=== PATIENT | female | born 1975 | race Caucasian/White ===

== ENCOUNTER → 2017-06-29 17:02 | Outpatient (CLI) | payer OTHER, SELFPAY ==
[2017-06-29 17:47] LABS: Hematocrit 37.9 % (37-47); Hemoglobin 12.5 g/dl (12.0-15.0); Mean Corpuscular Hgb 30.5 pg (27.0-32.0); Mean Corpuscular Volume 92.4 fL (81-99); Mean Platelet Vol. 10.7 fl (6.2-12.0); Platelet Count 214 K/mm3 (150-450); RBC Distribution Width CV 12.5 % (11.6-14.6); RBC Distribution Width SD 41.8 fl (35.1-43.9); White Blood Count 6.7 K/mm3 (4.4-11.0)
[2017-06-29 17:50] LABS: Scan Indicated on CBC? Y/N NO
[2017-06-29 18:19] LABS: Hemoglobin A1c 4.9 % (4.2-6.3)
[2017-06-29 18:32] LABS: hCG Titer Quant., Serum < 1 mIU/mL (<9 non-preg)
[2017-06-29 18:37] LABS: Progesterone Level 12.17 ng/mL (See Comment)
[2017-06-29 18:58] LABS: Estradiol 176.1 pg/mL; T4 Free Direct 1.17 ng/dL (0.76-1.46); Thyroid Stim Hormone (TSH) 1.54 uIU/mL (0.358-3.74)
== END ==
PROVIDERS: Visit Provider Obstetrics & Gynecology
DX: N92.0 Excessive and frequent menstruation with regular cycle (principal)
CPT/HCPCS: 36415; 82670; 83036; 84144; 84403; 84439; 84443; 84481; 84702; 85027

== ENCOUNTER 2017-07-16 19:34 | Observation (INO) | payer OTHER, SELFPAY ==
[2017-07-16 19:35] VITALS: BP 128/80; PULSE 111; RESP 15; TEMP 37.1; O2SAT 100
--- NOTE | 2017-07-16 20:16 | ED.DCSUM_ITS ---
- ER Visit Summary Date of Service: 07/16/17 Chief Complaint: Vaginal bleeding History of Present Illness: The patient is a 42 F Ab0. The last 2 menstrual cycles had heavier bleeding than normal. She is on day 8 of her most recent menstrual cycle with heavier bleeding now with clots. No significant pain. Intermittent cramping. 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 Cass Couch within the last week who did a progesterone level and started her on Prometrium. She denies any bruising. She is on no blood thinners. Other than the Prometrium she is on no other medication. She denies any rectal bleeding or bloody noses. Physical Examination: Well-appearing middle-age female. Vital signs are stable afebrile. HEENT exam unremarkable. Neck nontender no lymphadenopathy. Lungs good auscultation bilaterally. Heart rate about 105 no murmur. Abdomen soft nontender nondistended no giving or masses. Normal bowel sounds no peritoneal signs. I do not feel an enlarged uterus on the abdominal exam. Extremities moves all 4. Neurovascular intact. No edema. Neurologically awake alert without focal deficits. Back exam nontender. Test Results: CBC normal white count. Showed an H&H of 10.1 and 30 previously the hemoglobin was 12.5. about 2 weeks ago. Serum test negative. Orthostatic vital signs were negative. Emergency Department Course and Treatment: Pelvic exam and screening labs. Exam showed moderate vaginal bleeding with bright red blood and clots. That was cleared out. No adnexal tenderness or masses. The uterus did not feel significantly enlarged nor did I palpate any large fibroids. Treatment Plan: Patient continued to bleed. A pelvic ultrasound has been performed but no official reading as of yet. I spoke with Dr. Ren she is coming in to evaluate the patient and will make a determination if the patient needs to go to the OR. We will obtain a second H&H. Patient will be typed and screened. She had a transient episode of bradycardia and hypotension but that is since resolved. We are hanging a liter of normal saline. The second H&H was obtained before IV fluids were started. Disposition: Discharge Impression: Acute heavy vaginal bleeding Anemia This note was generated with [employer] dictation software. It may contain incorrect words, spelling, and punctuation that were not noted in review of the chart prior to signing ED Disposition - Plan for ED Patient: Chief Complaint: Vag Bleeding Referrals: Cass Couch MD [Primary Care Provider] -
[2017-07-16 20:40] LABS: Hematocrit 30.2 % (37-47); Hemoglobin 10.1 g/dl (12.0-15.0); Mean Corp Hgb Conc 33.4 g/gl (32-36); Mean Corpuscular Hgb 30.6 pg (27.0-32.0); Mean Corpuscular Volume 91.5 fL (81-99); Mean Platelet Vol. 10.1 fl (6.2-12.0); Platelet Count 206 K/mm3 (150-450); RBC Distribution Width CV 12.7 % (11.6-14.6); RBC Distribution Width SD 42.7 fl (35.1-43.9); White Blood Count 9.3 K/mm3 (4.4-11.0)
[2017-07-16 20:43] LABS: Scan Indicated on CBC? Y/N NO
[2017-07-16 21:01] LABS: Pregnancy, Serum, hCG Quali. NEGATIVE Negative (0-9 Nonpreg)
--- NOTE | 2017-07-16 21:15 | US_ITS ---
STUDY: PELVIC ULTRASOUND TRANSVAGINAL REASON FOR EXAM: Female, 42 years old. Abnormal bleeding LMP: July 09, 2017 TECHNIQUE: Transverse and longitudinal imaging of the pelvis was obtained transvaginally using real-time ultrasound. COMPARISON: None. FINDINGS: The uterus is anteverted and is in a midline position. The uterus measures 11.2 x 6.0 x 7.5 cm. The cervix is unremarkable. The endometrium measures 35.4 mm in thickness, and is hyperechoic and heterogeneous. There is minimal fluid in the endometrial canal. There is no demonstrated endometrial mass. There is no demonstrated myometrial mass. I.U.D. - The patient does not have an I.U.D. The right ovary is visualized. The right ovary measures 4.8 x 3.4 x 2.3 cm. There is a cystic mass in the right ovary measuring 2.3 x 1.2 x 1.6 cm. There is no visualized right adnexal mass or complex lesion. There is normal arterial and normal venous vascularity. The left ovary is visualized. The left ovary measures 3.1 x 3.1 x 3.1 cm. There is a cystic mass with internal echoes in the left ovary measuring measuring 2.6 x 1.9 x 2.7 cm. There is no visualized left adnexal mass or complex lesion. There is normal arterial and normal venous vascularity. There is minimal fluid in the cul-de-sac. The urinary bladder was not imaged. US/Transvaginal Non- IMPRESSION: The endometrium is thickened and heterogeneous. There is minimal fluid in the endometrial canal. An endometrial mass cannot be excluded. There are cysts and follicles in both ovaries. A simple appearing cyst in the right ovary measures 2.3 cm in largest diameter. A probable hemorrhagic cyst in the left ovary measures 2.7 cm in largest diameter. There is minimal free fluid in the pelvis. Electronically Signed: Carlyn Albright MD at 23:48 EDT Tel Direct: [phone], Service support ,
[2017-07-16 22:41] VITALS: BP 118/65; PULSE 97; RESP 16; O2SAT 98
[2017-07-16 23:02] VITALS: BP 116/66; BP 119/69; BP 125/87; PULSE 116; PULSE 138
[2017-07-16] MEDS: 0.9% Normal Saline 1,000 ML 1000 ML IV (23:35)
[2017-07-16 23:56] LABS: Hemoglobin 8.4 g/dl (12.0-15.0)
[2017-07-16 23:58] VITALS: BP 122/65; PULSE 111; RESP 16; TEMP 37; O2SAT 100
[2017-07-17] VITALS (11 sets, daily range): BP systolic 100–124; BP diastolic 43–72; PULSE 80–104; RESP 16–18; TEMP 36.6–36.8; O2SAT 97–100
--- NOTE | 2017-07-17 00:15 | EMB_PTH ---
PATIENT: KITTY AGRAWAL LOC: [facility] U#:[id number] AGE/SX: 42/F ROOM: [facility]305 RE07/17/[address]: Dr. aCss Couch MD : 1975 BED: 1 DIS: 07/17/2017 SPEC #: [id number] RECD: 07/18/17 10:29 STATUS: YOKO SANTOSH #: [id number] BHARAT: 07/17/17 00:[address]: Cass Couch DEPT: SURGICAL PATHOLOGY RECD BY: Corbin Robles Tissues: Endometrium, NOS Procedures: Surgery Specimen Level IV HEADER OPERATION: Hysteroscopy, dilation and curettage PRE-OP DIAGNOSIS: Menorrhagia TISSUE SUBMITTED: Endometrial curettings MICROSCOPIC DIAGNOSIS Endometrial curettings: Disordered proliferative endometrium. Fragments of benign endocervical mucosa. Fragments of myometrium. SJ:amara 07/19/17 MICROSCOPIC DESCRIPTION Slides are reviewed. GROSS DESCRIPTION Received in fixative is one container labeled with the patient's name and designated endometrial curettings. The specimen consists of multiple fragments of sauceda hemorrhagic soft tissue mixed with blood clot that in aggregate measure 7.5 x 3 x 0.3 cm. The entire specimen is submitted in three cassettes. / SJ:rg 07/18/17 TC:5 CPT: 74936 ADDENDUM ADDENDUM ADDENDUM ADDENDUM ADDENDUM ADDENDUM ADDENDUM ADDENDUM 07/21/2017 10:12 ADDENDUM 07/21/2017 10:12 ADDENDUM 07/21/2017 10:12 ADDENDUM 07/21/2017 10:12 ADDENDUM 07/21/2017 10:12 During QC review, rare plasma cells are noted, findings are suggestive of mild chronic endometritis. SJ:amara 07/21/17 Case has been reviewed in consultation with Dr. Cherry who concurs with the above diagnosis. IDC:AM
--- NOTE | 2017-07-17 00:22 | PCM.CONS.GEN ---
Reason for Consult Date of Consultation: 07/17/17 History of Present Illness: The patient is a 42 year old F with menorrhagia. Current treatment for menorrhagia via luteal phase Prometrium. This treatment to start next month. The patient used the luteal phase Prometrium for a few days this current cycle. Pelvic ultrasound reveals thickened endometrium and simple small cysts likely related to attempted ovulation from hormone imbalance. The patient has had a decrease of her hemoglobin during this visit. Need for D and C, hysteroscopy is reviewed. The review includes procedures, risks, blood transfusion and post op recover. All is consented and agreed to. 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 Lives: Spouse/ Significant Other Smoking Status: Never smoker Tobacco Use: Non-smoker Alcohol: None Drugs: None Review of Systems Constitutional: Denies: Chills, Fever, Weight Change HEENT: Denies: Difficulty Hearing, Difficulty Swallowing, Nasal bleeding, Nasal Congestion, Sore Throat Cardiovascular: Denies: Chest Pain, Palpitations Respiratory: Denies: Shortness of Breath, Wheezing Gastrointestinal: Denies: Constipation, Diarrhea, Nausea, Vomiting Genitourinary: Denies: Dysuria, Frequency, Hematuria, Incontinence, Urgency Musculoskeletal: Denies: Joint Pain, Muscle pain Skin: Denies: Lesions, Skin Changes Neurological: Denies: Focal weakness, Numbness Psychiatric: Denies: Anxiety, Depression Endocrine: Denies: Heat/ Cold Intolerance Hematologic/ Lymphatic: Denies: Easy Bleeding Subjective: Dizzy and light-headed. No nausea and no vomiting. Vaginal bleeding present. - Physical Exam General: Alert Oral: Moist Mucosa Neck: No Nuchal Rigidity, Thyroid Normal Size and Texture Abdomen: Bowel Sounds Present Skin: No rashes, Other - No ulcers, lesions Musculoskeletal: No Tenderness to Palpation of Joints or Extremities, No Muscle Wasting Neurological: Cranial nerves II-XII grossly intact Psych/Mental Status: Normal Affect Vital Signs Temp Pulse Resp BP Pulse Ox 98.6 F 98 16 124/69 H 98 07/16/17 23:58 07/17/17 00:13 07/17/17 00:13 07/17/17 00:13 07/17/17 00:13 Oxygen Delivery Method Room Air Weight: 117 lb Body Mass Index (BMI) 20.0 Laboratory Tests Past 24 Hrs 07/16/17 07/16/17 07/16/17 20:30 20:30 23:46 WBC 9.3 RBC 3.30 L Hgb 10.1 L 8.4 L Hct 30.2 L MCV 91.5 MCH 30.6 MCHC 33.4 RDW 12.7 RDW Differential 42.7 Plt Count 206 MPV 10.1 Serum , Qual NEGATIVE Blood Type Antibody Screen 07/16/17 23:46 WBC RBC Hgb Hct MCV MCH MCHC RDW RDW Differential Plt Count MPV Serum , Qual Blood Type Pending Antibody Screen Pending Assessment/Plan 1. Menorrhagia anemia present ultrasound with thickened endometrium D and C, hysteroscopy postop Depo-Provera for down regulation of the lining and the ovaries 2. Anemia supplements
--- NOTE | 2017-07-17 00:50 | PCM.OPRPT ---
Problem List (1) Menorrhagia Status: Acute Qualifiers: Menorrahagia type: with regular cycle Qualified Code(s): N92.0 - Excessive and frequent menstruation with regular cycle Report of Operation Date of Procedure: 07/17/17 Pre-Operative Diagnosis: menorrhagia and anemia Post-Operative Diagnosis: Same + thickened endometrium Surgery/Procedure Performed:: D and C, diagnostic hysteroscopy Description of Surgical Findings:: Pelvic exam under anesthesia: Uterus anterior and 11-12 week size. Fully mobile. Bilateral adnexa benign. Clots in the vaginal vault. Endometrium is thickened throughout. Type of Anesthesia:: Local MAC Anesthesiologist: Anna Viera Special Medications: Ancef 2grams Iv and 10cc of 1% Lidocaine to the cervix Specimen's removed: endometrium Drains: none Estimated Blood Loss (mL): 150cc Fluids Replaced: Lactated ringers Grafts/Implants Used: none - Complications none - Admit VTE Documentation VTE Present on Admission: No VTE Mechan Device Prophylaxis: None VTE Pharm Prophylaxis ordered?: No Reason prophylaxis not ordered:: Procedure Not Indicated
--- NOTE | 2017-07-17 00:56 | PCM.DC.D&C ---
Discharge Diet: No Restrictions, - - Increase water intake to 100 ounces daily x 72 hours postop Discharge Activity: Return to Normal Activity, May Shower, May Take a Tub Bath - in 2 weeks. Return to work on:: 07/19/17 May shower in (days): 0 - TODAY May resume sexual activity in: 3 weeks Weight Bearing Status: Full weight bearing Lifting Restrictions: 10 pounds x 1 week Additional Activity Instructions:: Reclined and rest frequently with intermittent ambulation 72 hours after surgery Call your doctor if your incision/area has: Sudden Increased Bleeding, Increased Pain/ Swelling, Foul Smelling Discharge Call your doctor if you observe: Fever of 101 or Higher, Inability to urinate, Inability to have a bowel movement Cleanse incision/area with: Soap & Water Additional Dressing/Incision Instructions:: Ambulation is encouraged with rest in between the first 72 hours after surgery. Allergies/Adverse Reactions: Allergies sulfamethoxazole [From Septra] Allergy (Verified 07/16/17 19:39) Hives trimethoprim [From Octra] Allergy (Verified 07/16/17 19:39) Hives Medications to take at Discharge Progesterone 300 mg PO DAILY 07/16/17 Primary Care Physician: Cass Couch MD [Primary Care Provider] - Please Follow Up With: Cass Couch MD When: 1 week after surgery. Please call office to schedule.
--- NOTE | 2017-07-17 01:16 | OP.PCM_ITS ---
Problem List (1) Menorrhagia Status: Acute Qualifiers: Menorrahagia type: with regular cycle Qualified Code(s): N92.0 - Excessive and frequent menstruation with regular cycle Report of Operation Date of Procedure: 07/17/17 Pre-Operative Diagnosis: menorrhagia and anemia Post-Operative Diagnosis: Same + thickened endometrium Surgery/Procedure Performed:: D and C, diagnostic hysteroscopy Description of Surgical Findings:: Pelvic exam under anesthesia: Uterus anterior and 11-12 week size. Fully mobile. Bilateral adnexa benign. Clots in the vaginal vault. Endometrium is thickened throughout. Type of Anesthesia:: Local MAC Anesthesiologist: Anna Viera Special Medications: Ancef 2grams Iv and 10cc of 1% Lidocaine to the cervix Specimen's removed: endometrium Drains: none Estimated Blood Loss (mL): 150cc Fluids Replaced: Lactated ringers Description of Procedure: Patient is a 42 year old white female, multigravid. Presents to the ER with menorrhagia day 7 or 8 of current menses. Recent diagnosis of menorrhagia due to hormone imbalance. Use of Prometrium per the patient a few days. Ultrasound with thickened endometrium and suspected small, bilateral ovarian ovulatory cysts. Need for D and C and hysteroscopy for the thickened endometrium as the source of vaginal bleeding and subsequent anemia. All consents and procedures discussed and obtained. The patient was taken to the surgery suite. She underwent MAC anesthesia and once found to be adequate was prepped and draped in the normal sterile fashion. Bladder emptied via a red rubber catheter. Time out occurred. Weighted speculum to the vagina. The anterior lip of the cervix was grasped and elevated via single tooth tenaculum. The cervix was injected with 10cc of 1 %Lidocaine to the four quadrants of the cervix. Patient tolerated well. The os of the cervix easily dilated to accommodate a 5mm hysteroscope. Hysteroscopic evaluation revealed thickened endometrium of the entire uterine cavity. The hysteroscope was replaced by a sharp currette and removal of the endometrial tissue, gathering and sending to pathology for further evaluation. The hysteroscope was replaced into the endometrium with notation of removal of tissue. All instruments removed from the vagina. The sponge and instrument counts correct x 2. Patient awakened in stable condition. Grafts/Implants Used: none - Complications none - Admit VTE Documentation VTE Present on Admission: No VTE Mechan Device Prophylaxis: None VTE Pharm Prophylaxis ordered?: No Reason prophylaxis not ordered:: Treatment Not Indicated
[2017-07-17] MEDS: MedroxyPROGESTERone 150 MG/ML Syringe IM (01:20)
--- NOTE | 2017-07-17 01:21 | HP.PCM_ITS ---
Problem List (1) Menorrhagia Status: Acute Qualifiers: Menorrahagia type: with regular cycle Qualified Code(s): N92.0 - Excessive and frequent menstruation with regular cycle History of Present Illness Date of Admission: 07/17/17 The patient is a 42 year old F with menorrhagia. Current treatment for menorrhagia via luteal phase Prometrium. This treatment to start next month. The patient used the luteal phase Prometrium for a few days this current cycle. Pelvic ultrasound reveals thickened endometrium and simple small cysts likely related to attempted ovulation from hormone imbalance. The patient has had a decrease of her hemoglobin during this visit. Need for D and C, hysteroscopy is reviewed. The review includes procedures, risks, blood transfusion and post op recover. All is consented and agreed to. 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 REPRESENTATIVE history Lives: Spouse/ Significant Other Smoking Status: Never smoker Tobacco Use: Non-smoker Alcohol: None Drugs: None Review of Systems Constitutional: Denies: Chills, Fever, Weight Change HEENT: Denies: Difficulty Hearing, Difficulty Swallowing, Nasal bleeding, Nasal Congestion, Sore Throat Cardiovascular: Denies: Chest Pain, Palpitations Respiratory: Denies: Shortness of Breath, Wheezing Gastrointestinal: Denies: Constipation, Diarrhea, Nausea, Vomiting Genitourinary: Denies: Dysuria, Frequency, Hematuria, Incontinence, Urgency Musculoskeletal: Denies: Joint Pain, Muscle pain Skin: Denies: Lesions, Skin Changes Neurological: Denies: Focal weakness, Numbness Psychiatric: Denies: Anxiety, Depression Endocrine: Denies: Heat/ Cold Intolerance Hematologic/ Lymphatic: Denies: Easy Bleeding VTE Information - Inpt Only VTE Present on Admission: No VTE Mechan Device Prophylaxis: None VTE Pharm Prophylaxis ordered?: No Reason prophylaxis not ordered:: Procedure Not Indicated Patient Problems: Active and Suspected Problems Menorrhagia (Acute) - Physical Exam General: No apparent distress, Well developed, Well nourished HEENT: PERRLA, EOMI, Normocephalic Oral: Moist Mucosa Neck: Supple Abdomen: Soft, Non Tender, Non-Distended Extremities: No cyanosis, No edema Skin: No rashes, Other - No ulcers, lesions Psych/Mental Status: Normal Affect Vital Signs Temp Pulse Resp BP Pulse Ox 97.9 F 96 16 105/67 100 07/17/17 00:55 07/17/17 01:15 07/17/17 01:15 07/17/17 01:15 07/17/17 01:15 Oxygen Delivery Method Room Air Weight: 117 lb Body Mass Index (BMI) 20.0 Intake and Output for Last 24 Hours 07/15/17 07/16/17 07/17/17 23:59 23:59 23:59 Output Total 25 / 25 Balance -25 / -25 Laboratory Tests Past 24 Hrs 07/16/17 07/16/17 07/16/17 20:30 20:30 23:46 WBC 9.3 RBC 3.30 L Hgb 10.1 L 8.4 L Hct 30.2 L MCV 91.5 MCH 30.6 MCHC 33.4 RDW 12.7 RDW Differential 42.7 Plt Count 206 MPV 10.1 Serum , Qual NEGATIVE Blood Type Antibody Screen 07/16/17 23:46 WBC RBC Hgb Hct MCV MCH MCHC RDW RDW Differential Plt Count MPV Serum , Qual Blood Type O POSITIVE Antibody Screen NEGATIVE Assessment/Plan Active and Suspected Problems Menorrhagia (Acute) 1. Menorrhagia anemia present ultrasound with thickened endometrium D and C, hysteroscopy postop Depo-Provera for down regulation of the lining and the ovaries 2. Anemia supplements
[2017-07-17] MEDS: Acetaminophen 500 MG Tablet 1000 MG PO ×2 (02:17→09:50)
[2017-07-17] MEDS: Lactated Ringers 1,000 ML 150 ML IV (06:07)
[2017-07-17 06:19] LABS: Hematocrit 23.3 % (37-47); Hemoglobin 7.6 g/dl (12.0-15.0); Mean Corp Hgb Conc 32.6 g/gl (32-36); Mean Corpuscular Volume 92.1 fL (81-99); Mean Platelet Vol. 10.1 fl (6.2-12.0); Platelet Count 157 K/mm3 (150-450); RBC Distribution Width CV 12.8 % (11.6-14.6); RBC Distribution Width SD 43.6 fl (35.1-43.9); Red Blood Count 2.53 M/mm3 (4.2-5.4); White Blood Count 6.3 K/mm3 (4.4-11.0)
[2017-07-17 06:21] LABS: Scan Indicated on CBC? Y/N NO
--- NOTE | 2017-07-17 07:49 | PCM.PN.BLA ---
Progress Note P.C. from nurse caring for Dara. Pt hgb 7.5 g/dl. postop. minimal vaginal bleeding p D and C. Has not been OOB yet as not permitted until 9 am with dangle planned at 8:30 am. Afeb. Sl tachycardia, but BP reported WNL. Advised: if tolerating OOB well, no transfusion planned. Will start Ferrous gluconate bid for now. Pt also given DepoProvera which should minimize ongoing bleeding as well. Ferrous gluconate RX sent in .
[2017-07-17] MEDS: Ondansetron 4 MG/2 ML Vial IV (08:26)
[2017-07-17] MEDS: Ferrous Gluconate 325 MG Tablet PO (09:51)
== END 2017-07-17 12:25 | disposition home or self-care (01) ==
LOC: ED 20:23 → SDC 07-17 00:01 → MS3 07-19 12:52
PROVIDERS: Admitting Provider Obstetrics & Gynecology; Emergency Provider Emergency Medicine; Family Provider Obstetrics & Gynecology; PCP Obstetrics & Gynecology; Visit Provider Obstetrics & Gynecology
PROC: 0UDB8ZZ Extraction of Endometrium, Via Natural or Artificial Opening Endoscopic (ICD-10-PCS; CPT 58558; principal; 2017-07-17 00:15)
DX: N92.0 Excessive and frequent menstruation with regular cycle (principal); D64.9 Anemia, unspecified; R93.8 Abnormal findings on diagnostic imaging of other specified body structures; E34.9 Endocrine disorder, unspecified
CPT/HCPCS: 58558; 36415; 76830; 84703; 85018; 85027; 86850; 86900; 88305; 93976; 96361; 96365; 96366; 96375; 99283; J7030; J7120; A4216; J2405

== ENCOUNTER → 2017-09-05 13:39 | Outpatient (CLI) | payer OTHER, SELFPAY ==
[2017-09-05 15:57] LABS: Hematocrit 36.1 % (37-47); Hemoglobin 11.9 g/dl (12.0-15.0); Mean Corpuscular Hgb 31.1 pg (27.0-32.0); Mean Corpuscular Volume 94.3 fL (81-99); Mean Platelet Vol. 10.6 fl (6.2-12.0); Platelet Count 235 K/mm3 (150-450); RBC Distribution Width SD 40.9 fl (35.1-43.9); Red Blood Count 3.83 M/mm3 (4.2-5.4); White Blood Count 7.1 K/mm3 (4.4-11.0)
[2017-09-05 15:58] LABS: Scan Indicated on CBC? Y/N NO
[2017-09-05 16:11] LABS: hCG Titer Quant., Serum < 1 mIU/mL (<9 non-preg)
== END ==
PROVIDERS: Family Provider Obstetrics & Gynecology; Visit Provider Obstetrics & Gynecology
DX: N93.8 Other specified abnormal uterine and vaginal bleeding (principal); D50.0 Iron deficiency anemia secondary to blood loss (chronic)
CPT/HCPCS: 36415; 84702; 85027

== ENCOUNTER → 2017-09-06 14:35 | Outpatient (CLI) | payer OTHER, SELFPAY ==
--- NOTE | 2017-09-06 14:47 | US_ITS ---
STUDY: ULTRASOUND OF THE FEMALE PELVIS - COMPLETE REASON FOR EXAM: Female, 42 years old. Abnormal Uterine bleeding LMP: Bleeding since July 21, 2017 TECHNIQUE: TECHNICAL QUALITY: Adequate. COMPARISON: July 16, 2017 FINDINGS: The uterus is anteverted and is in a midline position. The uterus measures 12.2 x 8.5 x 3.8 cm. Normal uterine cervix. The endometrium measures 9 mm in thickness, and there is a echogenic appearance of the endometrium which may represent acute blood. There is a focal echogenic nodular density within the periphery of the endometrium within the fundus measuring 7.6 x 5.7 mm. On image described is sagittal left there is a inhomogeneous appearance of the central aspect of the uterus. There appear to be masses on both sides of the endometrium which may measuring the endometrium somewhat difficult.. There is no demonstrated endometrial mass. There are several fibroids demonstrated. Measuring 4.2 x 4.5 x 4.3 cm, 1.7 x 1.4 x 0.9 cm, and 2.1 x 2.3 x 1.4 cm. I.U.D. - The patient does not have an I.U.D. The right ovary is visualized. The right ovary measures 1.5 x 1.2 x 1.1 cm. There is a small right ovarian cyst measuring 1.5 x 1.2 x 1.1 cm. There is no visualized right adnexal mass or complex lesion. There is normal arterial and normal venous vascularity. The left ovary is visualized. The left ovary measures 2.7 x 2.7 x 1.8 cm. There is a mildly complex left ovarian cyst measuring 1.8 x 1.3 x 1.1 cm. There is no visualized left adnexal mass or complex lesion. There is normal arterial and normal venous vascularity. There is minimal fluid in the cul-de-sac. The pre void volume of the bladder was 152 ml. Polycystic ovary disease: No. US/Pelvic (Non ) IMPRESSION: Atypical-appearing fluid distended endometrium which likely contains a small amount of acute or recent blood. The endometrium less prominent than prior study and the masslike echogenicity distending the endometrium is much smaller than the prior study when it measured up to 3.5 cm. In correlation with pathology results. Cannot exclude underlying polyp and/or endometrial fibroid or atypia. Multi fibroid enlarged uterus. Electronically Signed: Maricel Benavides MD at 23:48 EDT Tel , Service support ,
--- NOTE | 2017-09-06 15:12 | US_ITS ---
STUDY: ULTRASOUND OF THE FEMALE PELVIS - COMPLETE REASON FOR EXAM: Female, 42 years old. Abnormal Uterine bleeding LMP: Bleeding since July 21, 2017 TECHNIQUE: TECHNICAL QUALITY: Adequate. COMPARISON: July 16, 2017 FINDINGS: The uterus is anteverted and is in a midline position. The uterus measures 12.2 x 8.5 x 3.8 cm. Normal uterine cervix. The endometrium measures 9 mm in thickness, and there is a echogenic appearance of the endometrium which may represent acute blood. There is a focal echogenic nodular density within the periphery of the endometrium within the fundus measuring 7.6 x 5.7 mm. On image described is sagittal left there is a inhomogeneous appearance of the central aspect of the uterus. There appear to be masses on both sides of the endometrium which may measuring the endometrium somewhat difficult.. There is no demonstrated endometrial mass. There are several fibroids demonstrated. Measuring 4.2 x 4.5 x 4.3 cm, 1.7 x 1.4 x 0.9 cm, and 2.1 x 2.3 x 1.4 cm. I.U.D. - The patient does not have an I.U.D. The right ovary is visualized. The right ovary measures 1.5 x 1.2 x 1.1 cm. There is a small right ovarian cyst measuring 1.5 x 1.2 x 1.1 cm. There is no visualized right adnexal mass or complex lesion. There is normal arterial and normal venous vascularity. The left ovary is visualized. The left ovary measures 2.7 x 2.7 x 1.8 cm. There is a mildly complex left ovarian cyst measuring 1.8 x 1.3 x 1.1 cm. There is no visualized left adnexal mass or complex lesion. There is normal arterial and normal venous vascularity. There is minimal fluid in the cul-de-sac. The pre void volume of the bladder was 152 ml. Polycystic ovary disease: No. US/Transvaginal Non- IMPRESSION: Atypical-appearing fluid distended endometrium which likely contains a small amount of acute or recent blood. The endometrium less prominent than prior study and the masslike echogenicity distending the endometrium is much smaller than the prior study when it measured up to 3.5 cm. In correlation with pathology results. Cannot exclude underlying polyp and/or endometrial fibroid or atypia. Multi fibroid enlarged uterus. Electronically Signed: Maricel Benavides MD at 23:48 EDT Tel , Service support ,
== END ==
PROVIDERS: Family Provider Obstetrics & Gynecology; PCP Obstetrics & Gynecology; Visit Provider Obstetrics & Gynecology
DX: D25.9 Leiomyoma of uterus, unspecified (principal); N83.202 Unspecified ovarian cyst, left side; N83.201 Unspecified ovarian cyst, right side; N93.9 Abnormal uterine and vaginal bleeding, unspecified
CPT/HCPCS: 76830; 76856; 93976

== ENCOUNTER 2017-09-29 09:14 | Emergency (ER) | payer OTHER, SELFPAY ==
[2017-09-29 09:15] VITALS: BP 133/72; PULSE 115; RESP 16; TEMP 36.6; O2SAT 98; BMI 19.7
--- NOTE | 2017-09-29 09:31 | US_ITS ---
STUDY: ULTRASOUND TRANSVAGINAL CLINICAL: Female, 42 years old. Menorrhagia. DTC on 07/17/2017. TECHNIQUE: Transvaginal COMPARISON: None. FINDINGS: The uterus is anteverted and is in a midline position. The uterus measures 11.0 x 8.3 x 6.1 cm. Nabothian cyst in the uterine cervix. The endometrium measures 6.5 mm in thickness, and is hyperechoic. The endometrium is difficult to visualize. I'm uncertain if this fibroid protruding into the endometrium. There are 3 uterine fibroids measuring 5.4 x 4.1 x 4.5 cm and 1.8 x 1.9 x 1.4 cm and a third fibroid measuring 2.1 x 1.9 x 1.6 cm. The third fibroid may be protruding into the endometrium comment for difficult visualization of the endometrium. I.U.D. - The patient does not have an I.U.D. The right ovary is visualized. The right ovary measures 3.1 x 1.8 x 1.8 cm. There is no right ovarian cyst or ovarian mass. There is no visualized right adnexal mass or complex lesion. There is normal arterial and normal venous vascularity. 1 follicle appears complex. The left ovary is visualized. The left ovary measures 2.5 x 3.1 x 1.9 cm. There is no left ovarian cyst or ovarian mass. There is no visualized left adnexal mass or complex lesion. There is normal arterial and normal venous vascularity. There is mild free fluid in the cul-de-sac. US/Transvaginal Non- IMPRESSION: 1. 3 small uterine fibroids measuring 5.4 x 4.1 x 4.5 cm, 1.8 x 1.9 x 1.4 cm and 2.1 x 1.9 x 1.6 cm respectively. 2. Difficult visualization of the endometrium which may be due to previously mentioned recent blood but uterine fibroid distortion and/or protrusion cannot be entirely excluded. 3. Nabothian cyst in the uterine cervix. 4. Small complex follicle in the right ovary. Follow-up ultrasound in one month will help clarify. Electronically Signed: Joseph Gordon MD at 10:48 EDT , Service support ,
--- NOTE | 2017-09-29 09:34 | ED.VISSUMM ---
- ER Visit Summary Date of Service: 09/29/17 Chief Complaint: Vaginal bleeding History of Present Illness: The patient is a 42 F with recent menorrhagia. Patient states that she had developed heavy vaginal bleeding and was seen by Dr. Couch. Her progesterone levels were low and she was started on Prometrium. Patient had a D&C on July 17 due to heavy bleeding. She was given a Depakote shot at that time. She was then started on Prometrium daily. This was stopped on September 05 and she was started on Sprintec. Patient states that on the 3 weeks of hormone pills with Sprintec she had kiln loader bleeding, similar to spotting. She started her week of placebo pills 2 days ago and last evening around midnight felt very heavy vaginal bleeding with cramping and passing large clots. Patient is to see Dr. Ha on October 17 for an evaluation for possible hysterectomy. Physical Examination: Vital signs significant for heart rate of 115, otherwise normal. Head neck examination normal. Heart is slightly tachycardic. Lung sounds are clear. Abdomen is soft with minimal suprapubic tenderness. No guarding or rebound. Test Results: CBC is unremarkable. Hemoglobin is 12.5. Chemistry studies normal. test negative. Ultrasound of the pelvis shows 3 small fibroids. Endometrium is difficult to visualize. This may be due to fibroid protruding into the endometrium. Emergency Department Course and Treatment: Patient was given IV fluids here. I spoke with Dr. Couch. She states the patient was supposed to take continuous hormone pills with the Sprintec, not take the week of placebo pills. This was relayed to the patient and she is to start the hormone pill tonight. Patient was still very concerned about going home and a repeat H&H was performed 3 hours after the initial. Patient received 1200 cc of fluid in the meantime. Hemoglobin is 10.3. At this time I feel patient's bleeding will improve once she restarts her hormone pills. Patient is going to be seeing Dr. Ha on October 17. She is out of town but I was able to speak with the nurse practitioner who will pass the patient's name along to their office staff to see if the patient can be seen earlier. Treatment Plan: [] Disposition: Discharge Impression: Menorrhagia This note was generated with [employer] software. It may contain incorrect words, spelling, and punctuation that were not noted in review of the chart prior to signing ED Disposition - Plan for ED Patient: Chief Complaint: Vag Bleeding Referrals: Cass Couch MD [Primary Care Provider] -
--- NOTE | 2017-09-29 09:37 | ED.DCSUM_ITS ---
- ER Visit Summary Date of Service: 09/29/17 Chief Complaint: Vaginal bleeding History of Present Illness: The patient is a 42 F with recent menorrhagia. Patient states that she had developed heavy vaginal bleeding and was seen by Dr. Couch. Her progesterone levels were low and she was started on Prometrium. Patient had a D&C on July 17 due to heavy bleeding. She was given a Depakote shot at that time. She was then started on Prometrium daily. This was stopped on September 05 and she was started on Sprintec. 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 She started her week of placebo pills 2 days ago and last evening around midnight felt very heavy vaginal bleeding with cramping and passing large clots. Patient is to see Dr. Ha on October 17 for an evaluation for possible hysterectomy. Physical Examination: Vital signs significant for heart rate of 115, otherwise normal. Head neck examination normal. Heart is slightly tachycardic. Lung sounds are clear. Abdomen is soft with minimal suprapubic tenderness. No guarding or rebound. Test Results: CBC is unremarkable. Hemoglobin is 12.5. Chemistry studies normal. test negative. Ultrasound of the pelvis shows 3 small fibroids. Endometrium is difficult to visualize. This may be due to fibroid protruding into the endometrium. Emergency Department Course and Treatment: Patient was given IV fluids here. I spoke with Dr. Couch. She states the patient was supposed to take continuous hormone pills with the Sprintec, not take the week of placebo pills. This was relayed to the patient and she is to start the hormone pill tonight. Patient was still very concerned about going home and a repeat H&H was performed 3 hours after the initial. Patient received 1200 cc of fluid in the meantime. Hemoglobin is 10.3. At this time I feel patient's bleeding will improve once she restarts her hormone pills. Patient is going to be seeing Dr. Ha on October 17. She is out of town but I was able to speak with the nurse practitioner who will pass the patient's name along to their office staff to see if the patient can be seen earlier. Treatment Plan: [] Disposition: Discharge Impression: Menorrhagia This note was generated with [employer] software. It may contain incorrect words, spelling, and punctuation that were not noted in review of the chart prior to signing ED Disposition - Plan for ED Patient: Chief Complaint: Vag Bleeding Referrals: Cass Couch MD [Primary Care Provider] -
[2017-09-29] MEDS: 0.9% Normal Saline 1,000 ML 1000 ML IV (09:50)
[2017-09-29 09:52] LABS: Absolute Lymphocyte Count 0.73 X10^3/ul (0.83-4.51); Absolute Neutrophil Count 6.5 X10^3/uL (2.0-7.7); Hematocrit 38.6 % (37-47); Hemoglobin 12.5 g/dl (12.0-15.0); Lymphocyte # 0.73 X10^3/ul (4.0); Lymphocyte % 9.6 % (19-41); Mean Corp Hgb Conc 32.4 g/gl (32-36); Mean Corpuscular Hgb 29.9 pg (27.0-32.0); Mean Corpuscular Volume 92.3 fL (81-99); Mean Platelet Vol. 9.9 fl (6.2-12.0); Monocyte# 0.38 X10^3/uL; Neutrophil # 6.52 X10^3/uL (2.7-7.7); Neutrophil % 85.4 % (47-70); POSITIVE COUNT NO; POSITIVE DIFFERENTIAL NO; POSITIVE MORPHOLOGY NO; Platelet Count 237 K/mm3 (150-450); RBC Distribution Width CV 12.3 % (11.6-14.6); RBC Distribution Width SD 41.8 fl (35.1-43.9); Red Blood Count 4.18 M/mm3 (4.2-5.4); White Blood Count 7.6 K/mm3 (4.4-11.0)
[2017-09-29 10:02] LABS: Anion Gap 8 (5-15); BUN 11 mg/dL (7-18); BUN/Creat Ratio 15.9 RATIO (10-20); Calcium,Total 8.6 mg/dL (8.5-10.1); Chloride 109 mmol/L (98-107); Creatinine, Serum 0.69 mg/dL (0.55-1.02); EST Glomerular Filtration Rate 99 mL/min (>60); Est Glom Filt Rate - Afr Amer 120 mL/min (>60); Estimated Creatinine Clearance 87.46 ml/min; Glucose 110 mg/dL (74-106); Potassium 3.8 mmol/L (3.5-5.1); Sodium Level 141 mmol/L (136-145)
[2017-09-29 10:09] LABS: Pregnancy, Serum, hCG Quali. NEGATIVE Negative (0-9 Nonpreg)
[2017-09-29 11:20] VITALS: BP 124/75; PULSE 62; RESP 16; O2SAT 98
[2017-09-29 12:09] VITALS: BP 131/79; PULSE 112; RESP 16; O2SAT 98
[2017-09-29] MEDS: 0.9% Normal Saline 1,000 ML 150 ML IV (12:16)
[2017-09-29 13:10] LABS: Hematocrit 31.7 % (37-47); Hemoglobin 10.3 g/dl (12.0-15.0)
--- NOTE | 2017-09-29 13:52 | ED.DEP ---
ED Disposition - Plan for ED Patient: Disposition: Home or Assisted Living Chief Complaint: Vag Bleeding Instructions: ED Bleeding Menstrual Heavy Referrals: Cass Couch MD [Primary Care Provider] - Lety Hadley MD [STAFF PHYSICIAN] - As soon as possible
== END 2017-09-29 14:20 | disposition home or self-care (01) ==
PROVIDERS: Emergency Provider Emergency Medicine; Family Provider Obstetrics & Gynecology; PCP Obstetrics & Gynecology
DX: N92.0 Excessive and frequent menstruation with regular cycle (principal); D25.9 Leiomyoma of uterus, unspecified
CPT/HCPCS: 76830; 80048; 84703; 85014; 85018; 85025; 93976; 96360; 96361; 99283; J7030

== ENCOUNTER 2017-12-01 07:31 | Day surgery (SDC) | payer OTHER, SELFPAY ==
[2017-11-28 15:03] LABS: Absolute Lymphocyte Count 1.79 X10^3/ul (0.83-4.51); Basophil# 0.02 X10^3/uL; Basophil% 0.3 % (0-1); Eosinophil# 0.04 X10^3/uL; Eosinophils% 0.5 % (0-5); Hematocrit 38.1 % (37-47); Hemoglobin 12.3 g/dl (12.0-15.0); Lymphocyte # 1.79 X10^3/ul (4.0); Lymphocyte % 24.6 % (19-41); Mean Corp Hgb Conc 32.3 g/gl (32-36); Mean Corpuscular Hgb 29.4 pg (27.0-32.0); Mean Corpuscular Volume 90.9 fL (81-99); Mean Platelet Vol. 10.7 fl (6.2-12.0); Monocyte# 0.39 X10^3/uL; Monocyte% 5.4 % (0-10); Neutrophil # 5.03 X10^3/uL (2.7-7.7); Neutrophil % 69.1 % (47-70); Platelet Count 253 K/mm3 (150-450); RBC Distribution Width CV 14.7 % (11.6-14.6); RBC Distribution Width SD 47.9 fl (35.1-43.9); Red Blood Count 4.19 M/mm3 (4.2-5.4); White Blood Count 7.3 K/mm3 (4.4-11.0)
[2017-11-28 15:06] LABS: POSITIVE COUNT NO; POSITIVE DIFFERENTIAL NO; POSITIVE MORPHOLOGY NO
[2017-11-28 15:15] LABS: Partial Thromboplast Time 29.9 Seconds (24.1-36.2); Prothrombin Time (Protime)PT. 13.4 SECONDS (11.7-14.9)
[2017-12-01] VITALS (11 sets, daily range): BP systolic 96–133; BP diastolic 52–81; PULSE 78–116; RESP 16–20; TEMP 35.8–37.7; O2SAT 95–100; BMI 19.5; BMI 19.4
--- NOTE | 2017-12-01 | HYST_PTH ---
PATIENT: KITTY AGRAWAL LOC: [facility] U#:[id number] AGE/SX: 42/F ROOM: RE12/01/[address]: Dr. Lety Hadley MD : 1975 BED: DIS: 12/02/2017 SPEC #: [id number] RECD: 12/01/17 13:28 STATUS: YOKO FROST #: [id number] BHARAT: 12/01/17 00:[address]: Lety Hadley DEPT: SURGICAL PATHOLOGY RECD BY: Lambert Tay ENTERED: 12/01/17 13:28 SP TYPE: HYSTERECT OTHR DR: No Primary Care Phys Tissues: Uterus, NOS Procedures: Surgery Specimen Level V HEADER OPERATION: Hysterectomy, lap-assisted vaginal, salpingectomy, cysto PRE-OP DIAGNOSIS: Anemia due to acute blood loss, intramural fibroids, menorrhagia with regular cycle TISSUE SUBMITTED: Uterus, cervix and bilateral fallopian tubes 284 gm MICROSCOPIC DIAGNOSIS Uterus, cervix and bilateral fallopian tubes, vaginal hysterectomy and bilateral salpingo-oophorectomy: Cervix - mild chronic cystic cervicitis. Endometrium - consistent with exogenous hormone effects. Myometrium - intramural leiomyomas (largest measuring 4.5 cm in greatest dimension). - Focal adenomyosis. Bilateral fallopian tubes - no pathologic diagnosis. Bilateral paratubal cysts. SJ:amara 12/02/17 MICROSCOPIC DESCRIPTION Slides are reviewed. GROSS DESCRIPTION Received in fixative is one container labeled with the patient's name and designated uterus, cervix and bilateral fallopian tubes. The specimen consists of a hysterectomy specimen previously opened anteriorly and consisting of uterus with cervix, attached bilateral fallopian tubes and detached piece of nodular tissue. The uterus with cervix with detached nodular piece of tissue weighs 263 gm. The uterus with cervix measures 12 x 8 x 6 cm. The serosal surface is sauceda, glistening. The ectocervical mucosa is unremarkable. The external os is oval in contour. The endocervical canal measures 3 cm in length and the endocervical mucosa is unremarkable. The triangular endometrial cavity measures 5.5 cm in length and up to 3.5 cm in width. The endometrium is sauceda, glistening without any mass lesion and measures up to 0.2 cm in thickness. Sections of uterine wall reveal multiple nodular masses, the largest measuring 2.0 cm in greatest dimension. A defect is noted in the posterior uterine wall and most likely consists of site of detached nodular mass. The detached nodular mass measures 4 x 4.5 x 4 cm. Sections of masses reveal sauceda whorled cut surfaces without areas of hemorrhage, necrosis or cystic degeneration. The uninvolved uterine wall measures up to 4 cm in thickness. The right fallopian tube measures 6 cm in length and up to 0.7 cm in diameter. The fimbrial end is identified. A paratubal cyst is noted measuring 1 cm in greatest dimension. The left fallopian tube is similar appearance to right and measures 6.5 cm in length and 0.6 cm in diameter. A paratubal cyst is noted measuring 0.7 cm in greatest dimension. Sections of both fallopian tubes do not reveal any mass lesion. Chalk Molding Machine Operator sections are submitted in 11 cassettes as follows: 1 - anterior cervix, 2 - posterior cervix, 3 & 4 - anterior uterine wall, 5 & 6 - posterior uterine wall, 7 & 8 - smaller and intermediate intramural nodular mass, 9 - largest nodular mass, 10 - right fallopian tube and paratubal cyst, 11 - left fallopian tube and paratubal cyst. / XOCHILT:amara 12/01/17 TC:1 CPT: 81019
--- NOTE | 2017-12-01 05:32 | HP.PCM_ITS ---
- Problem List (1) Anemia due to acute blood loss Status: Acute (2) Fibroids, intramural Status: Acute (3) Menorrhagia Status: Acute Qualifiers: History and Physical Date of Admission: 12/01/17 Vital Signs 10/17/17 Height 5 ft 4 in 10/17/17 Weight: 115 lb 4 oz 10/17/17 Body Mass Index (BMI) 19.8 10/17/17 Blood Pressure 131/81 Intake Visit Reasons: HYSTERECTOMY CONSULT Chief Complaint: hyst consult, NEW patient Is patient in pain?: No Allergies sulfamethoxazole [From Octra] Allergy (Verified 10/17/17 16:08) Hives trimethoprim [From Octra] Allergy (Verified 10/17/17 16:08) Hives Medications norgestimate 0.25 mg-ethinyl estradiol 35 mcg tablet 1 tab PO QDAY 10/17/17 [History Confirmed 10/17/17] Is last menstrual period known: Yes Last Menstral Period: 07/09/17 Post menopausal: No Patient : No : No PFSH Surgical History H/O dilation and curettage (Acute) History of wisdom tooth extraction, class II edentulism (Acute) Family History Father Heart disease quad bipass Social History Smoking Status: Never smoker alcohol intake: never substance use type: does not use caffeine: Yes what type of physical activity do you participate in: walking seatbelt use: always do you feel safe at home: Yes additional social history: Dea [employer] Patient works from home HPI HYSTERECTOMY CONSULT: Details: KITTY AGRAWAL is a 42 year old who presents for hysterectomy consult. she has a history of increasingly heavy menses and had apelvic utrasound that shows an 11 cm uterus with multiple fibroids. she has menses that passes large clots. she had tried multiple courses of progesterone with intermitteint bleeding still from it and lack of control. she became anemic from this. she had taken different amounts of prometrium. Female Reproductive History Last Menstral Period: 07/09/17 Cycle Length: <21 Questions: Metorrhagia: Yes Pregancy History 3 Elective abortions Hx Para 3 Spontaneous abortions Hx # Term Pregnancies Ectopic pregnancies Hx # Pregnancies Multiple births # of living children Past Pregnancies Del. Date Name GA/Weeks Outcome Route Bth Weight Gen Labor Lgth Anesthesia Del Locatn Provider FOB Unknown 1996 Dacia live - full term Unknown 1998 Nelida live - full term Unknown 2000 Hollis live - full term ROS Const Constitutional: Denies poor appetite, headache(s), fever(s), increased appetite, weight gain, weight loss or fatigue ENT ENT: Denies dizziness or dry mouth Cardio Card: Denies chest pain Resp Resp: Denies dyspnea or cough GI GI: Reports as per HPI; denies vomiting, nausea, abdominal pain or constipation : Reports as per HPI; denies urinary urgency, vaginal discharge, urinary frequency, vaginal itching, vaginal odor, vaginal dryness, urinary incontinence, urinary hesitancy, pelvic pain, difficulty urinating or painful urination Musc Musc: Denies muscle weakness, joint pain or back pain Skin Skin/Breast: Denies hair loss, change in hair, dry skin, breast pain, breast skin changes or breast lump Neuro Neuro: Denies dizziness Psych Psych: Denies anxiety or depression Endo Endo: Denies cold intolerance, increased thirst, excessive sweating or heat intolerance Eddie/Lymph Hematologic/Lymphatic: Denies easy bleeding, Denies easy bruising, Denies enlarged lymph nodes Exam Const General: cooperative, healthy appearing, comfortable, no acute distress, well developed Nutritional Appearance: average body habitus Orientation: alert [facility] Head: normal to inspection, normocephalic Ears: hearing grossly normal bilaterally, external ears normal Nose: external nose normal, nares normal Face and sinus: normal facial exam Neck Neck: normal visual inspection, trachea midline, no lymphadenopathy Thyroid: thyroid normal Chest Chest palpation & inspection: normal inspection of the chest Resp Effort & Inspection: normal respiratory effort Auscultation: clear to auscultation bilaterally Cardio Rate: regular rate Rhythm: regular rhythm Heart Sounds: S1 normal, S2 normal GI Inspection: normal to inspection, non-distended Palpation: soft, no hepatosplenomegaly, mass (uterus 12-14 week size) Musc Cervical Spine: other Other: gross motor intact no deficits, full bilateral strength Skin General: no rashes or lesions noted Neuro General: alert, awake, no focal motor deficits, moves all extremities Motor: muscle tone normal throughout Extrem General: normal to inspection, no pedal edema Psych Appearance: grossly normal Mental Status: mental status grossly normal Affect: normal affect Speech and Movement: speech and movement normal Assessment & Plan Problems 1. Anemia due to acute blood loss D62 2. Fibroids, intramural D25.1 3. Menorrhagia with regular cycle N92.0 Plan plan continuous sprintec and slow fe until surgery plan LAVH BS cysto for fibroids. US FINDINGS: The uterus is anteverted and is in a midline position. The uterus measures 11.0 x 8.3 x 6.1 cm. Nabothian cyst in the uterine cervix. The endometrium measures 6.5 mm in thickness, and is hyperechoic. The endometrium is difficult to visualize. I'm uncertain if this fibroid protruding into the endometrium. There are 3 uterine fibroids measuring 5.4 x 4.1 x 4.5 cm and 1.8 x 1.9 x 1.4 cm and a third fibroid measuring 2.1 x 1.9 x 1.6 cm. The third fibroid may be protruding into the endometrium comment for difficult visualization of the endometrium. I.U.D. - The patient does not have an I.U.D. The right ovary is visualized. The right ovary measures 3.1 x 1.8 x 1.8 cm. There is no right ovarian cyst or ovarian mass. There is no visualized right adnexal mass or complex lesion. There is normal arterial and normal venous vascularity. 1 follicle appears complex. The left ovary is visualized. The left ovary measures 2.5 x 3.1 x 1.9 cm. There is no left ovarian cyst or ovarian mass. There is no visualized left adnexal mass or complex lesion. There is normal arterial and normal venous vascularity. There is mild free fluid in the cul-de-sac. US/Transvaginal Non- IMPRESSION: 1. 3 small uterine fibroids measuring 5.4 x 4.1 x 4.5 cm, 1.8 x 1.9 x 1.4 cm and 2.1 x 1.9 x 1.6 cm respectively. 2. Difficult visualization of the endometrium which may be due to previously mentioned recent blood but uterine fibroid distortion and/or protrusion cannot be entirely excluded. UPDATE- I have seen the patient and performed any clinically relevant updates to the history and physical exam. Lety Hadley MD
[2017-12-01 07:54] LABS: Internal QC Validated? YES +Cl - CLEAR BKGD; Pregnancy, Urine Negative Negative
[2017-12-01] MEDS: Phenazopyridine 95 MG Tablet 190 MG PO (08:09)
--- NOTE | 2017-12-01 09:41 | PCM.OPRPT ---
Problem List (1) Anemia due to acute blood loss Status: Acute (2) Fibroids, intramural Status: Acute (3) Menorrhagia Status: Acute Qualifiers: Report of Operation Date of Procedure: 12/01/17 Pre-Operative Diagnosis: aub fibroids Post-Operative Diagnosis: same Surgery/Procedure Performed:: lavh bs cysto Description of Surgical Findings:: enlarged uterus fibroids medical health researcher: Ana Paula Mayfield Type of Anesthesia:: General Special Medications: none Specimen's removed: uterus tubes Drains: urrutia Estimated Blood Loss (mL): 50 Fluids Replaced: crystalloid Description of Procedure: Patient received preoperative antibiotics and SCDs were on preoperatively. Patient was taken back to the operating room and placed in the dorsal lithotomy position. General anesthesia was induced and patient was prepped and draped in normal sterile fashion. Uterine manipulator was placed inside the uterus and Urrutia catheter placed in the bladder. The umbilicus was grasped with towel clamps and an intraumbilical incision was made after injecting with quarter percent Marcaine and a Veress needle entered into the abdomen confirmed to be intra-abdominal with a low opening pressure. Abdomen was insufflated with CO2 gas and the Veress needle removed and the 5 mm trocar was placed under direct visualization without complication. Right and left lower quadrants were transilluminated and injected with quarter percent Marcaine and 5 mm ports placed under direct visualization. Pelvis was well visualized see operative findings for additional information. Bilateral fallopian tubes were identified and transected with the LigaSure device across the mesosalpinx to the level of the utero-ovarian ligament which was also transected with the LigaSure device. The broad ligament was opened up by transecting the round ligament bilaterally and skeletonizing the uterine vessels bilaterally and creating a bladder flap using the LigaSure device. The uterine arteries were transected bilaterally with good visualization of the bladder and the ureters were seen to be inferior lateral to the operative area. Attention was then paid to the vaginal portion of the procedure and the cervix was grasped with Stella clamps and circumferentially injected with dilute vasopressin. A circumferential incision was made and the vaginal mucosa was mobilized off posteriorly and the cul-de-sac entered into sharply and a longneck speculum placed. The anterior cul-de-sac was then identified and entered into sharply. The uterosacral ligaments were clamped cut and suture ligated with 0 Monocryl bilaterally followed by the cardinal ligaments which were clamped cut and suture ligated bilaterally with 0 Monocryl. The uterus serially descended and was removed without difficulty with minimal morcellation. Pelvic sidewall pedicles were checked and noted to have excellent hemostasis. The vaginal mucosa was reapproximated incorporating the posterior peritoneum. This was reapproximated using 0 Vicryl [id number] sutures. Excellent hemostasis was noted. The cystoscopy was then performed and bilateral ureteral strong spray was noted and the bladder was noted to have no abnormality or lesions seen. Urrutia catheter was replaced and then attention paid to the abdominal portion of the procedure again. The pelvis and cul-de-sac was well visualized and no significant active bleeding noted. Pressure was taken down and the areas visualized and noted of excellent hemostasis. All ports were removed under direct visualization without complication and the abdomen was desufflated of air. The instruments removed from the abdomen and the vagina vaginal sweep was negative. Port sites on the abdomen were closed with 4-0 Monocryl interrupted sutures and Steri's and windows were applied. She was awoken and taken recovery in stable condition. Grafts/Implants Used: none - Admit VTE Documentation VTE Present on Admission: No
--- NOTE | 2017-12-01 09:47 | DCINST_ITS ---
Discharge Diet: No Restrictions Discharge Activity: Return to Normal Activity, May Not Drive, May Shower May resume sexual activity in: 6-8 weeks Call your doctor if your incision/area has: Continuous Slow Oozing, Sudden Increased Bleeding, Increased Pain/ Swelling, Increased Redness, Foul Smelling Discharge Call your doctor if you observe: Fever of 101 or Higher, Inability to urinate, Inability to have a bowel movement, Using more than one pad per hour Allergies/Adverse Reactions: Allergies sulfamethoxazole [From ] Allergy (Verified 11/24/17 10:07) Hives trimethoprim [From ] Allergy (Verified 11/24/17 10:07) Hives Medications to take at Discharge ferrous sulfate ER 142 mg (45 mg iron) tablet,extended release 142 mg PO BID #60 tab 10/17/17 norgestimate 0.25 mg-ethinyl estradiol 35 mcg tablet 1 tab PO QDAY #84 tab 10/17/17 cyclobenzaprine 10 mg tablet 10 mg PO TID PRN #30 tab 11/24/17 Naproxen [Naprosyn] 250 - 500 mg PO Q8H PRN PRN #30 tablet 12/01/17 Oxycodone HCl/Acetaminophen [Percocet 5-325] 1 - 2 tablet PO Q4H PRN PRN 7 Days #28 tablet 12/01/17 Primary Care Physician: Care Physician,No Primary [Primary Care Provider] - Test Results: Test results from this visit will be discussed in further detail at your follow- up appointment, if applicable. Please Follow Up With: Lety Hadley MD - [phone]
[2017-12-01] MEDS: Lubricating Jelly 60 GM Tube 30 GM TOPICAL (10:19)
[2017-12-01] MEDS: Vasopressin 20 UNITS/ML Vial (10:30)
[2017-12-01] MEDS: Bupivacaine Mpf 0.5% 30 ML VIAL (11:06)
[2017-12-01] MEDS: Lactated Ringers 1,000 ML 125 ML IV ×2 (13:25→21:07)
[2017-12-01] MEDS: Ketorolac 30 MG/ML Syringe IV ×2 (13:25→21:07)
[2017-12-01] MEDS: Acetaminophen 500 MG Tablet 1000 MG PO (15:01)
[2017-12-01] MEDS: oxyCODONE 5 MG Tablet PO (18:02)
[2017-12-01] MEDS: Enoxaparin 40 MG/0.4 ML Syringe SC (21:07)
--- NOTE | 2017-12-02 00:42 | NURSING ---
Patient c/o to this RN that she was having some lower abd discomfort. When asked if she had voided since urrutia catheter had been removed she stated only once. Hat in bathroom had only 200mls of urine. Patient bladder scanned at this time for over >999. Abd noted as being firm and distended. Patient encouraged to get up again and try to void. Patient was able to void 400mls of urine. Rebladder scanned for 675mls, abd soft and rounded and patient denied discomfort. IV SL at this time d/t patient taking PO without difficulty per orders. Patient encouraged to ambulate at this time. Per patient she stated to this RN she had a D&C earlier this year and for a few days when she was at home had some trouble urinating. Will continue to monitor.
[2017-12-02 02:45] VITALS: BP 122/68; PULSE 99; RESP 16; TEMP 37.4; O2SAT 98
[2017-12-02] MEDS: Ketorolac 10 MG Tablet PO ×2 (02:48→08:07)
--- NOTE | 2017-12-02 05:38 | NURSING ---
Patient stated that each time she urinates its getting easier. This RN dumped hat for another 300mls of urine.
[2017-12-02 07:55] LABS: Hematocrit 33.4 % (37-47); Hemoglobin 10.8 g/dl (12.0-15.0); Mean Corp Hgb Conc 32.3 g/gl (32-36); Mean Corpuscular Hgb 29.7 pg (27.0-32.0); Mean Corpuscular Volume 91.8 fL (81-99); Mean Platelet Vol. 10.2 fl (6.2-12.0); Platelet Count 202 K/mm3 (150-450); RBC Distribution Width CV 14.9 % (11.6-14.6); RBC Distribution Width SD 48.2 fl (35.1-43.9); Red Blood Count 3.64 M/mm3 (4.2-5.4); White Blood Count 7.6 K/mm3 (4.4-11.0)
[2017-12-02 08:03] LABS: Scan Indicated on CBC? Y/N NO
[2017-12-02 08:12] VITALS: BP 114/69; PULSE 84; RESP 16; TEMP 37; O2SAT 100
--- NOTE | 2017-12-02 10:24 | NURSING ---
pt stating this am that urination was getting easier to do. pt voiding well. this nurse empties 3000 or more mls out of hat x2 this am. will continue to monitor.
--- NOTE | 2017-12-02 20:30 | PCM.PN.OB ---
Subjective: doing well no complaints - Physical Exam Vital Signs Temp Pulse Resp BP Pulse Ox 98.6 F 84 16 114/69 100 12/02/17 08:12 12/02/17 08:12 12/02/17 08:12 12/02/17 08:12 12/02/17 08:12 Oxygen Delivery Method Room Air Weight: 113 lb 12.136 oz Body Mass Index (BMI) 19.4 Intake and Output for Last 24 Hours 11/30/17 12/01/17 12/02/17 23:59 23:59 23:59 Intake Total 3559 / 3559 750 / 750 Output Total 700 / 700 1950 / 1950 Balance 2859 / 2859 -1200 / -1200 Laboratory Tests Past 24 Hrs 12/02/17 07:13 WBC 7.6 RBC 3.64 L Hgb 10.8 L Hct 33.4 L MCV 91.8 MCH 29.7 MCHC 32.3 RDW 14.9 H RDW Differential 48.2 H Plt Count 202 MPV 10.2 Medical Necessity - Tobacco Use Smoking Status: Never smoker Assessment/Plan All Active Problems (Last Reviewed 10/17/17 @ 16:10 by Denise Smalls) Anemia due to acute blood loss (Acute) Fibroids, intramural (Acute) Menorrhagia (Acute) s/p routine care mo home
== END 2017-12-02 10:55 | disposition home or self-care (01) ==
LOC: SDC 07:31 → ACINP 07:32 → MS3 12-02 09:07
PROVIDERS: Referring Provider Obstetrics & Gynecology; Visit Provider Obstetrics & Gynecology
PROC: 0UT9FZZ Resection of Uterus, Via Natural or Artificial Opening With Percutaneous Endoscopic Assistance (ICD-10-PCS; CPT 58554; principal; 2017-12-01 08:35)
DX: D25.1 Intramural leiomyoma of uterus (principal); D62 Acute posthemorrhagic anemia; N83.8 Other noninflammatory disorders of ovary, fallopian tube and broad ligament; N80.0 Endometriosis of uterus; N72 Inflammatory disease of cervix uteri; N92.0 Excessive and frequent menstruation with regular cycle
CPT/HCPCS: 00940; 58554; 36415; 81025; 85025; 85027; 85610; 85730; 86850; 86900; 88307; J7120; J2405

== ENCOUNTER → 2018-03-17 08:38 | Outpatient (CLI) | payer OTHER, SELFPAY ==
[2018-01-16 09:19] VITALS: BMI 19.8
--- NOTE | 2018-03-17 08:41 | BI_ITS ---
MAMMOGRAPHY - BILATERAL SCREENING REASON FOR EXAM: Female, 42 years old. Routine annual screening examination. PERTINENT HISTORY: Grandmother with breast cancer. TECHNIQUE: Digital bilateral breast audrey (3D mammographic acquisition) in the CC and MLO projections. 2-D mediolateral oblique (MLO) and craniocaudad (CC) views of both breasts were obtained. CAD: Full Field Digital Mammography with Computer Added Detection was performed. COMPARISON: Comparison is made with prior study dated September 02, 2016 and August 25, 2015. FINDINGS: Breast Composition: The breasts are extremely dense, which lowers the sensitivity of mammography. There are no dominant masses or suspicious calcifications. No other significant abnormalities are identified. There has been no significant change since the prior study. BI/SCREENING MAMM (CAD), BILAT IMPRESSION: Stable bilateral screening mammogram. Yearly follow-up mammogram recommended. (A) ASSESSMENT CATEGORY: BIRADS Category 1: Negative. A letter regarding these results will be sent to the patient by the facility within 30 days. Approximately 10% of breast cancers are not detected by mammography. A normal mammogram should not delay biopsy of a clinically suspicious abnormality. [id number] Electronically Signed: Erik Reynolds MD at 9:40 EST Tel [phone], Service support ,
--- OUTSIDE RECORDS SUMMARY | 2018-05-21 15:44 | XMS RPT_ITS ---
:1975 Author Organization OHIP Support Name Relationship Address Phone TIFFANIE AGRAWAL Unavailable [address] + [place] [address] [employer] Unavailable [address] + [place] [address] TIFFANIE AGRAWAL Unavailable [address] + [place] [address] S Unavailable Unavailable Unavailable TANJA TIFFANIE Unavailable [address] + [place] [address] S Unavailable Unavailable Unavailable TANJA TIFFANIE Unavailable [address] + [place] [address] S Unavailable Unavailable Unavailable TIFFANIE AGRAWAL Unavailable [address] + [place] [address] S Unavailable Unavailable Unavailable TANJA TIFFANIE Unavailable [address] + [place] [address] S Unavailable Unavailable Unavailable TIFFANIE AGRAWAL Unavailable [address] + [place] [address] S Unavailable Unavailable Unavailable TANJA TIFFANIE Unavailable [address] + [place] [address] S Unavailable Unavailable Unavailable TIFFANIE AGRAWAL Unavailable [address] + [place] [address] S Unavailable Unavailable Unavailable TANJA TIFFANIE Unavailable [address] + [place] [address] S Unavailable Unavailable Unavailable TANJA TIFFANIE Unavailable [address] + [place] [address] S Unavailable Unavailable Unavailable TANJA TIFFANIE Unavailable [address] + [place] [address] UE Unavailable Unavailable Unavailable Care Team Providers Name Role Phone Lety Ha Attending Unavailable Primay Care Physicia, No Primary Care Unavailable Marcanthony, Lety Referring Unavailable Shriner, Cass Attending Unavailable Primay Care Physicia, No Primary Care Unavailable Shriner, Cass Primary Care Unavailable Shriner, Cass Attending Unavailable Shriner, Cass Admitting Unavailable Shriner, Cass Attending Unavailable Shriner, Cass Primary Care Unavailable Shriner, Cass Attending Unavailable Shriner, Cass Referring Unavailable Shriner, Cass Primary Care Unavailable Shriner, Cass Primary Care Unavailable Carlyn Glover Attending Unavailable Marcanthony, Lety Attending Unavailable Shriner, Cass Referring Unavailable Shriner, Cass Primary Care Unavailable Marcanthony, Lety Attending Unavailable Marcanthony, Lety Referring Unavailable Primay Care Physicia, No Primary Care Unavailable Marcanthony, Lety Attending Unavailable Marcanthony, Lety Referring Unavailable Primay Care Physicia, No Primary Care Unavailable Marcanthony, Lety Consulting Unavailable Marcanthony, Lety Attending Unavailable Marcanthony, Lety Referring Unavailable Primay Care Physicia, No Primary Care Unavailable Marcanthony, Lety Consulting Unavailable Marcanthony, Lety Attending Unavailable Primay Care Physicia, No Referring Unavailable Marcanthony, Lety Attending Unavailable Primay Care Physicia, No Referring Unavailable PROBLEMS PROBLEMS DATE TYPE CONDITION / CODE ATTENDING STATUS SOURCE 01/16/2018 Unknown Z09 - Encounter for Marcralphony, Active [place] follow-up examination [facility] after completed Hospital treatment for Repository conditions other than malignant neoplasm / Z09(ICD-10) 01/16/2018 Unknown Z12.31 - Encounter Marcanthony, Active [place] for screening [facility] mammogram for Hospital malignant neoplasm of Repository breast / Z12.31(ICD-10) 12/02/2017 Unknown G89.18 - Other acute Marcanthony, Active [place] postprocedural pain / [facility] G89.18(ICD-10) Hospital Repository 10/18/2017 Unknown D62 - Acute Marcanthony, Active [place] posthemorrhagic [facility] anemia / D62(ICD-10) Hospital Repository 10/18/2017 Unknown D25.1 - Intramural Marcanthony, Active [place] leiomyoma of uterus / [facility] D25.1(ICD-10) Hospital Repository 10/18/2017 Unknown N92.0 - Excessive and Marcanthony, Active [place] frequent menstruation [facility] with regular cycle / Hospital N92.0(ICD-10) Repository 09/05/2017 Unknown N93.8 - Other Cass Couch Active [place] specified abnormal Community uterine and vaginal Hospital bleeding / Repository N93.8(ICD-10) 09/05/2017 Unknown 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) / Repository D50.0(ICD-10) PROCEDURES PROCEDURES No Procedure Records FoundRESULTS RESULTS SCREENING MAMM (CAD), Observed: 03/17/2018 Status: F Source: [place] BILAT 8:41 AM [facility] H[facility] REPOSITORY [facility] Imaging Services [address] [address] SCREENING MAMM (CAD), BILAT MR#: [id number] Acct: [id number] Name: KITTY AGRAWAL Rep #: [id number] : 1975 F 42 From: Erik Reynolds MD PCP: Care Physician, No Primary Status: REG CLI Study: SCREENING MAMM (CAD), BILAT Date of Exam: 03/17/18 Exam# [id number] Ordering Dr: Lety Ha MD MAMMOGRAPHY - BILATERAL SCREENING REASON FOR EXAM: Female, 42 years old. Routine annual screening examination. PERTINENT HISTORY: Grandmother with breast cancer. TECHNIQUE: Digital bilateral breast audrey (3D mammographic acquisition) in the CC and MLO projections. 2-D mediolateral oblique (MLO) and craniocaudad (CC) views of both breasts were obtained. CAD: Full Field Digital Mammography with Computer Added Detection was performed. COMPARISON: Comparison is made with prior study dated September 02, 2016 and August 25, 2015. FINDINGS: Breast Composition: The breasts are extremely dense, which lowers the sensitivity of mammography. There are no dominant masses or suspicious calcifications. No other significant abnormalities are identified. There has been no significant change since the prior study. BI/SCREENING MAMM (CAD), BILAT IMPRESSION: Stable bilateral screening mammogram. Yearly follow-up mammogram recommended. (A) ASSESSMENT CATEGORY: BIRADS Category 1: Negative. A letter regarding these results will be sent to the patient by the facility within 30 days. Approximately 10% of breast cancers are not detected by mammography. A normal mammogram should not delay biopsy of a clinically suspicious abnormality. [id number] Electronically Signed: Erik Reynolds MD at 9:40 EST Tel [phone], Service support , CC: No Primary Care Physician; Lety Ha MD Manager In Training: Signed PURCHASING DIRECTOR OFFICE VISIT Observed: 01/16/2018 Status: F Source: [place] REPORT 9:29 AM [facility] [address] [place] [address] OFFICE VISIT Date of Service: 01/16/18 MR#: [id number] Acct: [id number] Name: KITTY AGRAWAL Rep #: [id number] : 1975 Provider: Lety Ha MD Age/Sex: 42/F [place] [facility] [place] Status: Signed Intake Vital Signs01/16/18 Height 5 ft 4 in 01/16/18 Weight: 115 lb 2 oz 01/16/18 Body Mass Index (BMI) 19.8 01/16/18 Blood Pressure 120/70 Intake Visit Reasons: 6 WEEK POST OP Chief Complaint: 6w post op Casino Controller Required: No Is patient in pain?: No Allergies sulfamethoxazole [From Septra] Allergy (Verified 01/16/18 09:20) Hives trimethoprim [From Septra] Allergy (Verified 01/16/18 09:20) Hives Medications ferrous sulfate ER 142 mg (45 mg iron) tablet,extended release 142 mg PO BID #60 tab 10/17/17 [Rx Confirmed 01/16/18] cyclobenzaprine 10 mg tablet 10 mg PO TID PRN #30 tab 11/24/17 [Rx Confirmed 10/19/18] Naproxen [Naprosyn] 250 - 500 mg PO Q8H PRN PRN #30 tab 12/01/17 [Rx Confirmed 01/16/18] Is last menstrual period known: No Post menopausal: No Patient : No : No PFSH Surgical History History of LAVH (Acute) H/O dilation and curettage (Acute) History of wisdom tooth extraction, class II edentulism (Acute) Family History Father Heart disease quad bipass Social History Smoking Status: Never smoker alcohol intake: never substance use type: does not use caffeine: Yes what type of physical activity do you participate in: walking seatbelt use: always do you feel safe at home: Yes additional social history: [employer] HPI 6 WEEK POST OP: Details: KITTY AGRAWAL is a 42 year old who presents for postop visit s/p lavh. doing well Pregancy History 3 Elective abortions Hx Para 3 Spontaneous abortions Past Pregnancies Del. DateName GA/Weeks Outcome Route Bth WeighInfant GeLabor LgtAnesthesiDel LocatProvider FOB t n h a n ROS Const Constitutional: Reports system reviewed and no additional complaints, except as docu GI GI: Denies abdominal pain, nausea, vomiting or cramping : Denies urinary frequency, vaginal dryness, vaginal discharge, urinary urgency, urinary incontinence, vaginal odor or pelvic pain Exam Const General: cooperative, healthy appearing, comfortable, no acute distress External Female Exam: normal external appearance, normal appearance of the urethra Urethra: normal appearance of the urethra Speculum Exam - Vagina: normal appearance of the vagina, other (normal vaginal length, apex well supprted and healed, intact no granulation) Speculum Exam - Cervix: cervix absent Bimanual Exam- Vagina AND Uterus: uterus absent Bimanual Exam- Adnexa, other: adnexae non-tender, pelvic support normal Pelvic Support: normal Other: vaginal cuff normal and intact, good vaginal length, no granulation tissue present Assessment AND Plan Problems 1. Postop check Z09 2. Screening for breast cancer Z02.27 Plan routine postop care Orders Orders: Coding Level of Care Code No Charge Diagnoses Postop check Z09 Screening for breast cancer Z12.31 01/16/18 0929 <Electronically signed by Lety Ha MD> Date Lety Ha MD Cosigner Signature: Date (if applicable) CC: PURCHASING DIRECTOR OFFICE VISIT Observed: 12/19/2017 Status: F Source: [place] REPORT 2:28 AM [facility] [address] [place], [place] [address] OFFICE VISIT Date of Service: 12/16/17 MR#: [id number] Acct: [id number] Name: KITTY AGRAWAL Rep #: [id number] : 1975 Provider: Lety Ha MD Age/Sex: 42/F [place] [facility] [place] Status: Signed Intake Vital Signs12/16/17 Weight: 113 lb 8 oz 12/16/17 Blood Pressure 130/82 H Intake Visit Reasons: 2 WEEK POST OP Casino Controller Required: No Accompanied by: Is patient in pain?: Yes Allergies sulfamethoxazole [From Septra] Allergy (Verified 12/16/17 13:11) Hives trimethoprim [From Octra] Allergy (Verified 12/16/17 13:11) Hives Medications ferrous sulfate ER 142 mg (45 mg iron) tablet,extended release 142 mg PO BID #60 tab 10/17/17 [Rx Confirmed 12/16/17] cyclobenzaprine 10 mg tablet 10 mg PO TID PRN #30 tab 11/24/17 [Rx Confirmed 12/16/17] Naproxen [Naprosyn] 250 - 500 mg PO Q8H PRN PRN #30 tab 12/01/17 [Rx Confirmed 12/16/17] Is last menstrual period known: No Post menopausal: No Patient : No : [facility] History History of wisdom tooth extraction, class II edentulism (Acute) Surgical History H/O dilation and curettage (Acute) Family History Father Heart disease quad bipass Social History Smoking Status: Never smoker alcohol intake: never substance use type: does not use caffeine: Yes what type of physical activity do you participate in: walking seatbelt use: always do you feel safe at home: Yes additional social history: [employer]- [employer] HPI 2 WEEK POST OP: Details: KITTY AGRAWAL is a 42 year old who presents for postop appointment. she is doing well and feels occasional pulling sensation. Pregancy History 3 Elective abortions Hx Para 3 Spontaneous abortions Past Pregnancies Del. DateName GA/Weeks Outcome Route Bth WeighInfant GeLabor LgtAnesthesiDel LocatProvider FOB t n h a n ROS Const Constitutional: Reports system reviewed and no additional complaints, except as docu GI GI: Denies abdominal pain, nausea, vomiting or cramping : Denies urinary frequency, vaginal dryness, vaginal discharge, urinary urgency, urinary incontinence, vaginal odor or pelvic pain Exam Const General: cooperative, healthy appearing, comfortable, no acute distress GI Inspection: normal to inspection Palpation: soft, nontender Other: Incisions: C/D/I Assessment AND Plan Problems 1. Fibroids, intramural D25.1 Plan routine care postop fu for 6 week check Medications Discontinued: norgestimate-ethinyl estradiol 0.25-35 mg-mcg (Sprintec (28)) 1 tab PO QDAY 84 tabs 4RF take only active pills discard inactive, start new pack immed iately. take 1 pill twice daily if increased bleeding Disco ntinued Reason: Order Changed Coding Level of Care Code No Charge Diagnoses Fibroids, intramural D25.1 12/19/17 0228 <Electronically signed by Lety Ha MD> Date Lety aH MD Cosigner Signature: Date (if applicable) CC: CBC-COMPLETE BLOOD CNT Collected: 12/02/2017 Status: F Source: [place] NO DIFF 7:13 AM [facility] REPOSITORY TYPE CODE TESTS RESULT OUT OF RANGE REFERENCE UNITS LAB L100.1000 4.4-11.0 K/mm3 Normal WBC 7.6 LAB L100.1200 4.2-5.4 M/mm3 Low RBC 3.64 LAB L100.1300 12.0-15.0 g/dl Low HGB 10.8 LAB L100.1400 37-47 % Low HCT 33.4 LAB L100.1500 81-99 fL Normal MCV 91.8 LAB L100.1600 27.0-32.0 pg Normal MCH 29.7 LAB L100.1700 32-36 g/gl Normal MCHC 32.3 LAB L100.1810 11.6-14.6 % High RDW CV 14.9 LAB L100.1820 35.1-43.9 fl High RDW SD 48.2 LAB L100.1900 150-450 K/mm3 Normal PLT 202 LAB L100.2000 6.2-12.0 fl Normal MPV 10.2 Performed By: #### L100.0500 #### [facility] [address], [address] OPERATIVE REPORT Observed: 12/01/2017 Status: F Source: [place] 12:12 PM [facility] REPOSITORY [facility] Medical Records Department [address] [place] [address] Operative Report 12/01/17 0941 MR#: [id number] Acct: [id number] Name: AGRAWALKITTY C Rep #: [id number] : 1975 42 From: Lety Ha MD PCP: Care Physician, No Primary Status: REG [facility] Y Location: [place] [address] Problem List (1) Anemia due to acute blood loss Status: Acute (2) Fibroids, intramural Status: Acute (3) Menorrhagia Status: Acute Qualifiers: Report of Operation Date of Procedure: 12/01/17 Pre-Operative Diagnosis: aub fibroids Post-Operative Diagnosis: same Surgery/Procedure Performed:: lavh bs cysto Description of Surgical Findings:: enlarged uterus fibroids stock puller: Ana Paula Mayfield Type of Anesthesia:: General Special Medications: none Specimen's removed: uterus tubes Drains: urrutia Estimated Blood Loss (mL): 50 Fluids Replaced: crystalloid Description of Procedure: Patient received preoperative antibiotics and SCDs were on preoperatively. Patient was taken back to the operating room and placed in the dorsal lithotomy position. General anesthesia was induced and patient was prepped and draped in normal sterile fashion. Uterine manipulator was placed inside the uterus and Urrutia catheter placed in the bladder. The umbilicus was grasped with towel clamps and an intraumbilical incision was made after injecting with quarter percent Marcaine and a Veress needle entered into the abdomen confirmed to be intra-abdominal with a low opening pressure. Abdomen was insufflated with CO2 gas and the Veress needle removed and the 5 mm trocar was placed under direct visualization without complication. Right and left lower quadrants were transilluminated and injected with quarter percent Marcaine and 5 mm ports placed under direct visualization. Pelvis was well visualized see operative findings for additional information. Bilateral fallopian tubes were identified and transected with the LigaSure device across the mesosalpinx to the level of the utero-ovarian ligament which was also transected with the LigaSure device. The broad ligament was opened up by transecting the round ligament bilaterally and skeletonizing the uterine vessels bilaterally and creating a bladder flap using the LigaSure device. The uterine arteries were transected bilaterally with good visualization of the bladder and the ureters were seen to be inferior lateral to the operative area. Attention was then paid to the vaginal portion of the procedure and the cervix was grasped with Stella clamps and circumferentially injected with dilute vasopressin. A circumferential incision was made and the vaginal mucosa was mobilized off posteriorly and the cul-de-sac entered into sharply and a longneck speculum placed. The anterior cul-de-sac was then identified and entered into sharply. The uterosacral ligaments were clamped cut and suture ligated with 0 Monocryl bilaterally followed by the cardinal ligaments which were clamped cut and suture ligated bilaterally with 0 Monocryl. The uterus serially descended and was removed without difficulty with minimal morcellation. Pelvic sidewall pedicles were checked and noted to have excellent hemostasis. The vaginal mucosa was reapproximated incorporating the posterior peritoneum. This was reapproximated using 0 Vicryl [id number] sutures. Excellent hemostasis was noted. The cystoscopy was then performed and bilateral ureteral strong spray was noted and the bladder was noted to have no abnormality or lesions seen. Urrutia catheter was replaced and then attention paid to the abdominal portion of the procedure again. The pelvis and cul-de-sac was well visualized and no significant active bleeding noted. Pressure was taken down and the areas visualized and noted of excellent hemostasis. All ports were removed under direct visualization without complication and the abdomen was desufflated of air. The instruments removed from the abdomen and the vagina vaginal sweep was negative. Port sites on the abdomen were closed with 4-0 Monocryl interrupted sutures and Steri's and windows were applied. She was awoken and taken recovery in stable condition. Grafts/Implants Used: none - Admit VTE Documentation VTE Present on Admission: No 12/01/17 1212 <Electronically signed by Lety Ha MD> Date Lety Ha MD CC: No Primary Care Physician; Lety Ha MD Signed DISCHARGE INSTRUCTION Observed: 12/01/2017 Status: F Source: [place] 9:47 AM [facility] REPOSITORY [facility] Medical Records Department [address] [place] [address] Instructions for Home/Discharge Instructions 12/01/17 0945 MR#: [id number] Acct: [id number] Name: KITTY AGRAWAL Rep #: [id number] : 1975 42 From: Lety Ha MD PCP: Care Physician, No Primary Status: REG SDC Discharge Diet: No Restrictions Discharge Activity: Return to Normal Activity, May Not Drive, May Shower May resume sexual activity in: 6-8 weeks Call your doctor if your incision/area has: Continuous Slow Oozing, Sudden Increased Bleeding, Increased Pain/ Swelling, Increased Redness, Foul Smelling Discharge Call your doctor if you observe: Fever of 101 or Higher, Inability to urinate, Inability to have a bowel movement, Using more than one pad per hour Allergies/Adverse Reactions: Allergies sulfamethoxazole [From ] Allergy (Verified 11/24/17 10:07) Hives trimethoprim [From ] Allergy (Verified 11/24/17 10:07) Hives Medications to take at Discharge ferrous sulfate ER 142 mg (45 mg iron) tablet,extended release 142 mg PO BID #60 tab 10/17/17 norgestimate 0.25 mg-ethinyl estradiol 35 mcg tablet 1 tab PO QDAY #84 tab 10/17/17 cyclobenzaprine 10 mg tablet 10 mg PO TID PRN #30 tab 11/24/17 Naproxen [Naprosyn] 250 - 500 mg PO Q8H PRN PRN #30 tablet 12/01/17 Oxycodone HCl/Acetaminophen [Percocet 5-325] 1 - 2 tablet PO Q4H PRN PRN 7 Days #28 tablet 12/01/17 Primary Care Physician: Care Physician,No Primary [Primary Care Provider] - Test Results: Test results from this visit will be discussed in further detail at your follow-up appointment, if applicable. Please Follow Up With: Lety Ha MD - [phone] 12/01/17 0947 <Electronically signed by Lety Ha MD> Date Lety Ha MD CC: No Primary Care Physician HISTORY AND PHYSICAL Observed: 12/01/2017 Status: F Source: [place] EXAM 9:40 AM [facility] REPOSITORY [facility] Medical Records Department [address] [place] [address] [place] [address] History and Physical 12/01/17 0530 MR#: [id number] Acct: [id number] Name: KITTY AGRAWAL Nanette Rep #: [id number] : 1975 42 From: Lety Ha MD PCP: Care Physician, No Primary Status: REG [facility] Y Location: [place] [address] - Problem List (1) Anemia due to acute blood loss Status: Acute (2) Fibroids, intramural Status: Acute (3) Menorrhagia Status: Acute Qualifiers: History and Physical Date of Admission: 12/01/17 Vital Signs 10/17/17 Height 5 ft 4 in 10/17/17 Weight: 115 lb 4 oz 10/17/17 Body Mass Index (BMI) 19.8 10/17/17 Blood Pressure 131/81 Intake Visit Reasons: HYSTERECTOMY CONSULT Chief Complaint: hyst consult, NEW patient Is patient in pain?: No Allergies sulfamethoxazole [From Octra] Allergy (Verified 10/17/17 16:08) Hives trimethoprim [From Octra] Allergy (Verified 10/17/17 16:08) Hives Medications norgestimate 0.25 mg-ethinyl estradiol 35 mcg tablet 1 tab PO QDAY 10/17/17 [History Confirmed 10/17/17] Is last menstrual period known: Yes Last Menstral Period: 07/09/17 Post menopausal: No Patient : No : No PFSH Surgical History H/O dilation and curettage (Acute) History of wisdom tooth extraction, class II edentulism (Acute) Family History Father Heart disease quad bipass Social History Smoking Status: Never smoker alcohol intake: never substance use type: does not use caffeine: Yes what type of physical activity do you participate in: walking seatbelt use: always do you feel safe at home: Yes 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 she has a history of increasingly heavy menses and had apelvic utrasound that shows an 11 cm uterus with multiple fibroids. she has menses that passes large clots. she had tried multiple courses of progesterone with intermitteint bleeding still from it and lack of control. she became anemic from this. she had taken different amounts of prometrium. Female Reproductive History Last Menstral Period: 07/09/17 Cycle Length: <21 Questions: Metorrhagia: Yes Pregancy History 3 Elective abortions Hx Para 3 Spontaneous abortions Hx # Term Pregnancies Ectopic pregnancies Hx # Pregnancies Multiple births # of living children Past Pregnancies Del. Date Name GA/Weeks Outcome Route Bth Weight Infant Gen Labor Lgth Anesthesia Del Locatn Provider FOB Unknown 1996 Dacia live - full term Unknown 1998 Nelida live - full term Unknown 2000 Hollis live - full term ROS Const Constitutional: Denies poor appetite, headache(s), fever(s), increased appetite, weight gain, weight loss or fatigue ENT ENT: Denies dizziness or dry mouth Cardio Card: Denies chest pain Resp Resp: Denies dyspnea or cough GI GI: Reports as per HPI; denies vomiting, nausea, abdominal pain or constipation : Reports as per HPI; denies urinary urgency, vaginal discharge, urinary frequency, vaginal itching, vaginal odor, vaginal dryness, urinary incontinence, urinary hesitancy, pelvic pain, difficulty urinating or painful urination Musc Musc: Denies muscle weakness, joint pain or back pain Skin Skin/Breast: Denies hair loss, change in hair, dry skin, breast pain, breast skin changes or breast lump Neuro Neuro: Denies dizziness Psych Psych: Denies anxiety or depression Endo Endo: Denies cold intolerance, increased thirst, excessive sweating or heat intolerance Eddie/Lymph Hematologic/Lymphatic: Denies easy bleeding, Denies easy bruising, Denies enlarged lymph nodes Exam Const General: cooperative, healthy appearing, comfortable, no acute distress, well developed Nutritional Appearance: average body habitus Orientation: alert [facility] Head: normal to inspection, normocephalic Ears: hearing grossly normal bilaterally, external ears normal Nose: external nose normal, nares normal Face and sinus: normal facial exam Neck Neck: normal visual inspection, trachea midline, no lymphadenopathy Thyroid: thyroid normal Chest Chest palpation AND inspection: normal inspection of the chest Resp Effort AND Inspection: normal respiratory effort Auscultation: clear to auscultation bilaterally Cardio Rate: regular rate Rhythm: regular rhythm Heart Sounds: S1 normal, S2 normal GI Inspection: normal to inspection, non-distended Palpation: soft, no hepatosplenomegaly, mass (uterus 12-14 week size) Musc Cervical Spine: other Other: gross motor intact no deficits, full bilateral strength Skin General: no rashes or lesions noted Neuro General: alert, awake, no focal motor deficits, moves all extremities Motor: muscle tone normal throughout Extrem General: normal to inspection, no pedal edema Psych Appearance: grossly normal Mental Status: mental status grossly normal Affect: normal affect Speech and Movement: speech and movement normal Assessment AND Plan Problems 1. Anemia due to acute blood loss D62 2. Fibroids, intramural D25.1 3. Menorrhagia with regular cycle N92.0 Plan plan continuous sprintec and slow fe until surgery plan LAV[facility] BS cysto for fibroids. US FINDINGS: The uterus is anteverted and is in a midline position. The uterus measures 11.0 x 8.3 x 6.1 cm. Nabothian cyst in the uterine cervix. The endometrium measures 6.5 mm in thickness, and is hyperechoic. The endometrium is difficult to visualize. I'm uncertain if this fibroid protruding into the endometrium. There are 3 uterine fibroids measuring 5.4 x 4.1 x 4.5 cm and 1.8 x 1.9 x 1.4 cm and a third fibroid measuring 2.1 x 1.9 x 1.6 cm. The third fibroid may be protruding into the endometrium comment for difficult visualization of the endometrium. I.U.D. - The patient does not have an I.U.D. The right ovary is visualized. The right ovary measures 3.1 x 1.8 x 1.8 cm. There is no right ovarian cyst or ovarian mass. There is no visualized right adnexal mass or complex lesion. There is normal arterial and normal venous vascularity. 1 follicle appears complex. The left ovary is visualized. The left ovary measures 2.5 x 3.1 x 1.9 cm. There is no left ovarian cyst or ovarian mass. There is no visualized left adnexal mass or complex lesion. There is normal arterial and normal venous vascularity. There is mild free fluid in the cul-de-sac. US/Transvaginal Non- IMPRESSION: 1. 3 small uterine fibroids measuring 5.4 x 4.1 x 4.5 cm, 1.8 x 1.9 x 1.4 cm and 2.1 x 1.9 x 1.6 cm respectively. 2. Difficult visualization of the endometrium which may be due to previously mentioned recent blood but uterine fibroid distortion and/or protrusion cannot be entirely excluded. UPDATE- I have seen the patient and performed any clinically relevant updates to the history and physical exam. Lety Ha MD 12/01/17 0940 <Electronically signed by Lety Ha MD> Date Lety Ha MD Cosigner Signature: Date (if applicable) CC: No Primary Care Physician; Lety Ha MD Signed ,URINE Collected: 12/01/2017 Status: F Source: [place] 7:40 AM [facility] REPOSITORY TYPE CODE TESTS RESULT OUT OF REFERENCE UNITS RANGE LAB L400.8000 Negative Normal HCGUQUAL Negative Result Comment: Very dilute urine specimens, as indicated by a low specific gravity, may not contain sales representative education courses levels of hCG. If is still suspected, a first morning urine specimen should be collected 48 hours later and tested. Performed By: #### L400.7600 #### [facility] [address] [place], [address] HYSTERECTOMY SPECIMEN Observed: 12/01/2017 Status: F Source: [place] 12:00 AM [facility] REPOSITORY Patient: KITTY AGRAWAL : 1975 (42/F) Acct Num: [id number] Phys: Leonie OWEN,Lety Unit Num: [id number] Loc: [facility] [place] Specimen: [id number] Received: 12/01/178 Spec Type: HYSTERECT TISSUES 1 TISSUES: Uterus, NOS GROSS DESCRIPTION Received in fixative is one container labeled with the patient's name and designated uterus, cervix and bilateral fallopian tubes. The specimen consists of a hysterectomy specimen previously opened anteriorly and consisting of uterus with cervix, attached bilateral fallopian tubes and detached piece of nodular tissue. The uterus with cervix with detached nodular piece of tissue weighs 263 gm. The uterus with cervix measures 12 x 8 x 6 cm. The serosal surface is sauceda, glistening. The ectocervical mucosa is unremarkable. The external os is oval in contour. The endocervical canal measures 3 cm in length and the endocervical mucosa is unremarkable. The triangular endometrial cavity measures 5.5 cm in length and up to 3.5 cm in width. The endometrium is sauceda, glistening without any mass lesion and measures up to 0.2 cm in thickness. Sections of uterine wall reveal multiple nodular masses, the largest measuring 2.0 cm in greatest dimension. A defect is noted in the posterior uterine wall and most likely consists of site of detached nodular mass. The detached nodular mass measures 4 x 4.5 x 4 cm. Sections of masses reveal sauceda whorled cut surfaces without areas of hemorrhage, necrosis or cystic degeneration. The uninvolved uterine wall measures up to 4 cm in thickness. The right fallopian tube measures 6 cm in length and up to 0.7 cm in diameter. The fimbrial end is identified. A paratubal cyst is noted measuring 1 cm in greatest dimension. The left fallopian tube is similar appearance to right and measures 6.5 cm in length and 0.6 cm in diameter. A paratubal cyst is noted measuring 0.7 cm in greatest dimension. Sections of both fallopian tubes do not reveal any mass lesion. [employer] Supervisor sections are submitted in 11 cassettes as follows: 1 - anterior cervix, 2 - posterior cervix, 3 AND 4 - anterior uterine wall, 5 AND 6 - posterior uterine wall, 7 AND 8 - smaller and intermediate intramural nodular mass , 9 - largest nodular mass, 10 - right fallopian tube and paratubal cyst, 11 - left fallopian tube and paratubal cyst. / Miguelito 12/01/17 TC:1 CPT: 88467 HEADER OPERATION: Hysterectomy, lap-assisted vaginal, salpingectomy, cysto PRE-OP DIAGNOSIS: Anemia due to acute blood loss, intramural fibroids, menorrhagia with regular cycle TISSUE SUBMITTED: Uterus, cervix and bilateral fallopian tubes 284 gm MICROSCOPIC DESCRIPTION Slides are reviewed. MICROSCOPIC DIAGNOSIS Uterus, cervix and bilateral fallopian tubes, vaginal hysterectomy and bilateral salpingo-oophorectomy: Cervix - mild chronic cystic cervicitis. Endometrium - consistent with exogenous hormone effects. Myometrium - intramural leiomyomas (largest measuring 4.5 cm in greatest dimension). - Focal adenomyosis. Bilateral fallopian tubes - no pathologic diagnosis. Bilateral paratubal cysts. Miguelito 12/02/17 Signed Madi Alcantar 12/02/17 <signature on file> Performed By: #### PHYST #### [facility] [address] [place], [place], [address] CBC W/DIFF, AUTOMATED Collected: 11/28/2017 Status: F Source: [place] 1:21 PM [facility] REPOSITORY TYPE CODE TESTS RESULT OUT OF RANGE REFERENCE UNITS LAB L100.1000 4.4-11.0 K/mm3 Normal WBC 7.3 LAB L100.1200 4.2-5.4 M/mm3 Low RBC 4.19 LAB L100.1300 12.0-15.0 g/dl Normal HGB 12.3 LAB L100.1400 37-47 % Normal HCT 38.1 LAB L100.1500 81-99 fL Normal MCV 90.9 LAB L100.1600 27.0-32.0 pg Normal MCH 29.4 LAB L100.1700 32-36 g/gl Normal MCHC 32.3 LAB L100.1810 11.6-14.6 % High RDW CV 14.7 LAB L100.1820 35.1-43.9 fl High RDW SD 47.9 LAB L100.1900 150-450 K/mm3 Normal PLT 253 LAB L100.2000 6.2-12.0 fl Normal MPV 10.7 LAB L100.2100 47-70 % Normal NEUT% 69.1 LAB L100.2200 19-41 % Normal LY% 24.6 LAB L100.2300 0-10 % Normal MONO% 5.4 LAB L100.2400 0-5 % Normal EO% 0.5 LAB L100.2500 0-1 % Normal BASO% 0.3 LAB L100.2550 0.0-0.9 % Normal IM GRAN % 0.100 Result Comment: IG% - Immature Granulocytes (promyelocytes, myelocytes and metamyelocytes) > 1% indicates that a LEFT SHIFT is Present. LAB L100.2620 2.0-7.7 X10 3/uL Normal Absolute Neut 5.0 LAB L100.2720 0.83-4.51 X10 3/ul Normal Absolute Lymph 1.79 Performed By: #### L100.0100 #### [facility] [address] [place] [place], [address] PROTHROMBIN TIME W/INR Collected: 11/28/2017 Status: F Source: [place] 1:21 PM [facility] REPOSITORY TYPE CODE TESTS RESULT OUT OF RANGE REFERENCE UNITS LAB L300.4150 11.7-14.9 SECONDS Normal PROTIME 13.4 LAB L300.4200 Normal INR 1.0 Performed By: #### L300.3900, L300.4310 #### [facility] [address] [place], [address] PARTIAL THROMBOPLAST Collected: 11/28/2017 Status: F Source: [place] TIME 1:21 PM [facility] REPOSITORY TYPE CODE TESTS RESULT OUT OF RANGE REFERENCE UNITS LAB L300.4310 24.1-36.2 Seconds Normal PTT 29.9 Performed By: #### L300.3900, L300.4310 #### [facility] [address] [place], [address] TYPE AND SCREEN Collected: 11/28/2017 Status: F Source: [place] 1:21 PM [facility] REPOSITORY Order Comment: Surgery Date: 12/01/17 Hx of Preganancy in last 3 Months No Ever experience any problems with transfusion(s)? N Hx of Transfusion in last 3 Months N Reason for Type AND Screen/Red Cells: SURGERY SURGICAL PROCEDURE: 18539 12434 TYPE CODE TESTS RESULT OUT OF RANGE REFERENCE UNITS LAB B10.0800 O Normal BLOOD TYPE GEL POSITIVE LAB B100.4000 Normal Antibody NEGATIVE Screen Performed By: #### B101.7475 #### [facility] [address] [place], [address] PURCHASING DIRECTOR OFFICE VISIT Observed: 10/17/2017 Status: F Source: [place] REPORT 5:23 PM [facility] REPOSITORY [facility] [address] [place] [address] OFFICE VISIT Date of Service: 10/17/17 MR#: [id number] Acct: [id number] Name: KITTY AGRAWAL Rep #: [id number] : 1975 Provider: Lety Ha MD Age/Sex: 42/F Location: [facility] [place] Status: Signed Intake Vital Signs10/17/17 Height 5 ft 4 in 10/17/17 Weight: 115 lb 4 oz 10/17/17 Body Mass Index (BMI) 19.8 10/17/17 Blood Pressure 131/81 Intake Visit Reasons: HYSTERECTOMY CONSULT Chief Complaint: hyst consult, NEW patient Is patient in pain?: No Allergies sulfamethoxazole [From ] Allergy (Verified 10/17/17 16:08) Hives trimethoprim [From ] Allergy (Verified 10/17/17 16:08) Hives Medications norgestimate 0.25 mg-ethinyl estradiol 35 mcg tablet 1 tab PO QDAY 10/17/17 [History Confirmed 10/17/17] Is last menstrual period known: Yes Last Menstral Period: 07/09/17 Post menopausal: No Patient : No : No PFSH Surgical History H/O dilation and curettage (Acute) History of wisdom tooth extraction, class II edentulism (Acute) Family History Father Heart disease quad bipass Social History Smoking Status: Never smoker alcohol intake: never substance use type: does not use caffeine: Yes what type of physical activity do you participate in: walking seatbelt use: always do you feel safe at home: Yes additional social history: [employer] Patient works from home HPI HYSTERECTOMY CONSULT: Details: KITTY AGRAWAL is a 42 year old who presents for hysterectomy consult. she has a history of increasingly heavy menses and had apelvic utrasound that shows an 11 cm uterus with multiple fibroids. she has menses that passes large clots. she had tried multiple courses of progesterone with intermitteint bleeding still from it and lack of control. she became anemic from this. she had taken different amounts of prometrium. Female Reproductive History Last Menstral Period: 07/09/17 Cycle Length: <21 Questions: Metorrhagia: Yes Pregancy History 3 Elective abortions Hx Para 3 Spontaneous abortions Past Pregnancies Del. DateName GA/Weeks Outcome Route Bth WeighInfant GeLabor LgtAnesthesiDel LocatProvider FOB t n h a n ROS Const Constitutional: Denies poor appetite, headache(s), fever(s), increased appetite, weight gain, weight loss or fatigue ENT ENT: Denies dizziness or dry mouth Cardio Card: Denies chest pain Resp Resp: Denies dyspnea or cough GI GI: Reports as per HPI; denies vomiting, nausea, abdominal pain or constipation : Reports as per HPI; denies urinary urgency, vaginal discharge, urinary frequency, vaginal itching, vaginal odor, vaginal dryness, urinary incontinence, urinary hesitancy, pelvic pain, difficulty urinating or painful urination Musc Musc: Denies muscle weakness, joint pain or back pain Skin Skin/Breast: Denies hair loss, change in hair, dry skin, breast pain, breast skin changes or breast lump Neuro Neuro: Denies dizziness Psych Psych: Denies anxiety or depression Endo Endo: Denies cold intolerance, increased thirst, excessive sweating or heat intolerance Eddie/Lymph Hematologic/Lymphatic: Denies easy bleeding, Denies easy bruising, Denies enlarged lymph nodes Exam Const General: cooperative, healthy appearing, comfortable, no acute distress, well developed Nutritional Appearance: average body habitus Orientation: alert [facility] Head: normal to inspection, normocephalic Ears: hearing grossly normal bilaterally, external ears normal Nose: external nose normal, nares normal Face and sinus: normal facial exam Neck Neck: normal visual inspection, trachea midline, no lymphadenopathy Thyroid: thyroid normal Chest Chest palpation AND inspection: normal inspection of the chest Resp Effort AND Inspection: normal respiratory effort Auscultation: clear to auscultation bilaterally Cardio Rate: regular rate Rhythm: regular rhythm Heart Sounds: S1 normal, S2 normal GI Inspection: normal to inspection, non-distended Palpation: soft, no hepatosplenomegaly, mass (uterus 12-14 week size) Musc Cervical Spine: other Other: gross motor intact no deficits, full bilateral strength Skin General: no rashes or lesions noted Neuro General: alert, awake, no focal motor deficits, moves all extremities Motor: muscle tone normal throughout Extrem General: normal to inspection, no pedal edema Psych Appearance: grossly normal Mental Status: mental status grossly normal Affect: normal affect Speech and Movement: speech and movement normal Assessment AND Plan Problems 1. Anemia due to acute blood loss D62 2. Fibroids, intramural D25.1 3. Menorrhagia with regular cycle N92.0 Plan plan continuous sprintec and slow fe until surgery plan LAV[facility] BS cysto for fibroids. Medications Discontinued: Coding Level of Care Code Off vis,new,level 4 Diagnoses Anemia due to acute blood loss D62 Fibroids, intramural D25.1 Menorrhagia with regular cycle N92.0 Menorrahagia type: with regular cycle 10/17/17 1723 <Electronically signed by Lety Ha MD> Date Lety Ha MD Cosigner Signature: Date (if applicable) CC: EMERGENCY DEPARTMENT Observed: 09/29/2017 Status: F Source: [place] SUMMARY 4:27 PM [facility] REPOSITORY [facility] Medical Records Department [address] [address] Emergency Department Summary 09/29/17 0934 MR#: [id number] Acct: [id number] Name: KITTY AGRAWAL Rep #: [id number] : 1975 42 From: Carlyn Glover MD PCP: Cass Couch MD Status: DEP ER - ER Visit Summary Date of Service: 09/29/17 Chief Complaint: Vaginal bleeding History of Present Illness: The patient is a 42 F with recent menorrhagia. Patient states that she had developed heavy vaginal bleeding and was seen by Dr. Couch. Her progesterone levels were low and she was started on Prometrium. Patient had a D AND C on July 17 due to heavy bleeding. She was given a Depakote shot at that time. She was then started on Prometrium daily. This was stopped on September 05 and she was started on Sprintec. Patient states that on the 3 weeks of hormone pills with Sprintec she had safety sitter bleeding, similar to spotting. She started her week of placebo pills 2 days ago and last evening around midnight felt very heavy vaginal bleeding with cramping and passing large clots. Patient is to see Dr. Ha on October 17 for an evaluation for possible hysterectomy. Physical Examination: Vital signs significant for heart rate of 115, otherwise normal. Head neck examination normal. Heart is slightly tachycardic. Lung sounds are clear. Abdomen is soft with minimal suprapubic tenderness. No guarding or rebound. Test Results: CBC is unremarkable. Hemoglobin is 12.5. Chemistry studies normal. test negative. Ultrasound of the pelvis shows 3 small fibroids. Endometrium is difficult to visualize. This may be due to fibroid protruding into the endometrium. Emergency Department Course and Treatment: Patient was given IV fluids here. I spoke with Dr. Couch. She states the patient was supposed to take continuous hormone pills with the Sprintec, not take the week of placebo pills. This was relayed to the patient and she is to start the hormone pill tonight. Patient was still very concerned about going home and a repeat H AND H was performed 3 hours after the initial. Patient received 1200 cc of fluid in the meantime. Hemoglobin is 10.3. At this time I feel patient's bleeding will improve once she restarts her hormone pills. Patient is going to be seeing Dr. Ha on October 17. She is out of town but I was able to speak with the nurse practitioner who will pass the patient's name along to their office staff to see if the patient can be seen earlier. Treatment Plan: [] Disposition: Discharge Impression: Menorrhagia This note was generated with [employer] dictation software. It may contain incorrect words, spelling, and punctuation that were not noted in review of the chart prior to signing ED Disposition - Plan for ED Patient: Chief Complaint: Vag Bleeding Referrals: Cass Couch MD [Primary Care Provider] - What to do if you have Problems For any increased pain, shortness of breath, bleeding, nausea or vomiting, chest pain, or any unexpected problems, contact your Primary Care Provider. Call [facility] ([phone]) or report to the closest Emergency Room. Call 911 if necessary. 09/29/17 4359 <Electronically signed by Carlyn Glover MD> Date Carlyn Glover MD Cosigner Signature (If Indicated): Date CC: Cass Couch MD DISCHARGE INSTRUCTION Observed: 09/29/2017 Status: F Source: [place] 1:53 PM [facility] REPOSITORY [facility] Medical Records Department [address] [place] [address] Discharge Instruction 09/29/17 1352 MR#: [id number] Acct: [id number] Name: KITTY AGRAWAL Rep #: [id number] : 1975 42 From: Carlyn Glover MD PCP: Cass Couch MD Status: REG ER ED Disposition - Plan for ED Patient: Disposition: Home or Assisted Living Chief Complaint: Vag Bleeding Instructions: ED Bleeding Menstrual Heavy Referrals: Cass Couch MD [Primary Care Provider] - Lety Ha MD [STAFF PHYSICIAN] - As soon as possible What to do if you have Problems For any increased pain, shortness of breath, bleeding, nausea or vomiting, chest pain, or any unexpected problems, contact your Primary Care Provider. Call [facility] ([phone]) or report to the closest Emergency Room. Call 911 if necessary. 09/29/17 1353 <Electronically signed by Carlyn Glover MD> Date Carlyn Glover MD Cosigner Signature (If Indicated): Date CC: Cass Couch MD HH, HEMOGLOBIN AND Collected: 09/29/2017 Status: F Source: [place] HEMATOCRIT 12:45 PM [facility] REPOSITORY TYPE CODE TESTS RESULT OUT OF RANGE REFERENCE UNITS LAB L100.1300 12.0-15.0 g/dl Low HGB 10.3 LAB L100.1400 37-47 % Low HCT 31.7 Performed By: #### L100.0600 #### [facility] [address] [place], [address] CBC W/DIFF, AUTOMATED Collected: 09/29/2017 Status: F Source: [place] 9:39 AM [facility] REPOSITORY TYPE CODE TESTS RESULT OUT OF RANGE REFERENCE UNITS LAB L100.1000 4.4-11.0 K/mm3 Normal WBC 7.6 LAB L100.1200 4.2-5.4 M/mm3 Low RBC 4.18 LAB L100.1300 12.0-15.0 g/dl Normal HGB 12.5 LAB L100.1400 37-47 % Normal HCT 38.6 LAB L100.1500 81-99 fL Normal MCV 92.3 LAB L100.1600 27.0-32.0 pg Normal MCH 29.9 LAB L100.1700 32-36 g/gl Normal MCHC 32.4 LAB L100.1810 11.6-14.6 % Normal RDW CV 12.3 LAB L100.1820 35.1-43.9 fl Normal RDW SD 41.8 LAB L100.1900 150-450 K/mm3 Normal PLT 237 LAB L100.2000 6.2-12.0 fl Normal MPV 9.9 LAB L100.2100 47-70 % High NEUT% 85.4 LAB L100.2200 19-41 % Low LY% 9.6 LAB L100.2300 0-10 % Normal MONO% 5.0 LAB L100.2400 0-5 % Normal EO% 0.0 LAB L100.2500 0-1 % Normal BASO% 0.0 LAB L100.2550 0.0-0.9 % Normal IM GRAN % 0.000 Result Comment: IG% - Immature Granulocytes (promyelocytes, myelocytes and metamyelocytes) > 1% indicates that a LEFT SHIFT is Present. LAB L100.2620 2.0-7.7 X10 3/uL Normal Absolute Neut 6.5 LAB L100.2720 0.83-4.51 X10 3/ul Low Absolute Lymph 0.73 Performed By: #### L100.0100 #### [facility] [address] [facility]. [place], [place], [id number] BASIC METABOLIC Collected: 09/29/2017 Status: F Source: [place] PROFILE (BMP) 9:39 AM [facility] REPOSITORY TYPE CODE TESTS RESULT OUT OF RANGE REFERENCE UNITS LAB L501.0100 74-106 mg/dL High GLU 110 Result Comment: Fasting Glucose result from 100 to 125 mg/dL suggests IMPAIRED HOMEOSTASIS per A.D.A. criteria. Please note revised GLUCOSE reference range effective 2017. LAB L501.1000 7-18 mg/dL Normal BUN 11 LAB L501.1100 0.55-1.02 mg/dL Normal CREAT,SERUM 0.69 Result Comment: The validity of the calculated GFR AND GFRAA in patients over 70 years has not been determined. Clinical correlation is essential. LAB L501.1110 >60 mL/min Normal EST GFR 99 Result Comment: Non- GFR Calc LAB L501.1115 >60 mL/min Normal EST GFR - AA 120 Result Comment: GFR Calc LAB L501.1255 ml/min Normal Estimated CRCL 87.46 LAB L501.1300 10-20 RATIO Normal BUN/CRE 15.9 LAB L501.2200 8.5-10 mg/dL Normal .1 CA 8.6 LAB L501.5300 136-14 mmol/L Normal 5 NA 141 LAB L501.5600 3.5-5. mmol/L Normal 1 K 3.8 LAB L501.5900 98-107 mmol/L High CL 109 LAB L501.6100 21.0-3 mmol/L Normal 2.0 CO2 24.0 LAB L501.6200 5-15 Normal GAP 8 Performed By: #### L500.2500 #### [facility] [address] [facility]. [place], [place], [address] ,SERUM,HCG QUALI. Collected: Status: F Source: [place] 09/29/2017 9:39 AM [facility] REPOSITORY TYPE CODE TESTS RESULT OUT OF REFERENCE UNITS RANGE LAB L700.7000 0-9 Nonpreg Negative Normal HCGSQUAL NEGATIVE LAB L700.6700 =>Qualitative mIU/mL Normal HCG Qual < 1 triggr Performed By: #### L700.6800 #### [facility] [address] [facility] [place], [address] TRANSVAGINAL Observed: 09/29/2017 Status: F Source: [place] NON- 9:32 AM [facility] REPOSITORY [facility] Imaging Services [address] [place] [address] Transvaginal Non- MR#: [id number] Acct: [id number] Name: KITTY AGRAWAL Rep #: [id number] : 1975 F 42 From: Joseph Gordon MD PCP: Cass Couch MD Status: REG ER Study: Transvaginal Non- Date of Exam: 09/29/17 Exam# [id number] Ordering Dr: Carlyn Glover MD STUDY: ULTRASOUND TRANSVAGINAL CLINICAL: Female, 42 years old. Menorrhagia. DTC on 07/17/2017. TECHNIQUE: Transvaginal COMPARISON: None. FINDINGS: The uterus is anteverted and is in a midline position. The uterus measures 11.0 x 8.3 x 6.1 cm. Nabothian cyst in the uterine cervix. The endometrium measures 6.5 mm in thickness, and is hyperechoic. The endometrium is difficult to visualize. I'm uncertain if this fibroid protruding into the endometrium. There are 3 uterine fibroids measuring 5.4 x 4.1 x 4.5 cm and 1.8 x 1.9 x 1.4 cm and a third fibroid measuring 2.1 x 1.9 x 1.6 cm. The third fibroid may be protruding into the endometrium comment for difficult visualization of the endometrium. I.U.D. - The patient does not have an I.U.D. The right ovary is visualized. The right ovary measures 3.1 x 1.8 x 1.8 cm. There is no right ovarian cyst or ovarian mass. There is no visualized right adnexal mass or complex lesion. There is normal arterial and normal venous vascularity. 1 follicle appears complex. The left ovary is visualized. The left ovary measures 2.5 x 3.1 x 1.9 cm. There is no left ovarian cyst or ovarian mass. There is no visualized left adnexal mass or complex lesion. There is normal arterial and normal venous vascularity. There is mild free fluid in the cul-de-sac. US/Transvaginal Non- IMPRESSION: 1. 3 small uterine fibroids measuring 5.4 x 4.1 x 4.5 cm, 1.8 x 1.9 x 1.4 cm and 2.1 x 1.9 x 1.6 cm respectively. 2. Difficult visualization of the endometrium which may be due to previously mentioned recent blood but uterine fibroid distortion and/or protrusion cannot be entirely excluded. 3. Nabothian cyst in the uterine cervix. 4. Small complex follicle in the right ovary. Follow-up ultrasound in one month will help clarify. Electronically Signed: Joseph Gordon MD at 10:48 EDT , Service support , CC: Cass Couch MD; Carlyn Glover MD Manager In Training: Signed TRANSVAGINAL Observed: 09/06/2017 Status: F Source: [place] NON- 3:13 PM [facility] REPOSITORY [facility] Imaging Services [address] [place] [address] Transvaginal Non- MR#: [id number] Acct: [id number] Name: KITTY AGRAWAL Rep #: [id number] : 1975 F 42 From: Maricel Benavides MD PCP: Cass Couch MD Status: REG CLI Study: Transvaginal Non- Date of Exam: 09/06/17 Exam# [id number] Ordering Dr: Cass Couch MD STUDY: ULTRASOUND OF THE FEMALE PELVIS - COMPLETE REASON FOR EXAM: Female, 42 years old. Abnormal Uterine bleeding LMP: Bleeding since July 21, 2017 TECHNIQUE: TECHNICAL QUALITY: Adequate. COMPARISON: July 16, 2017 FINDINGS: The uterus is anteverted and is in a midline position. The uterus measures 12.2 x 8.5 x 3.8 cm. Normal uterine cervix. The endometrium measures 9 mm in thickness, and there is a echogenic appearance of the endometrium which may represent acute blood. There is a focal echogenic nodular density within the periphery of the endometrium within the fundus measuring 7.6 x 5.7 mm. On image described is sagittal left there is a inhomogeneous appearance of the central aspect of the uterus. There appear to be masses on both sides of the endometrium which may measuring the endometrium somewhat difficult.. There is no demonstrated endometrial mass. There are several fibroids demonstrated. Measuring 4.2 x 4.5 x 4.3 cm, 1.7 x 1.4 x 0.9 cm, and 2.1 x 2.3 x 1.4 cm. I.U.D. - The patient does not have an I.U.D. The right ovary is visualized. The right ovary measures 1.5 x 1.2 x 1.1 cm. There is a small right ovarian cyst measuring 1.5 x 1.2 x 1.1 cm. There is no visualized right adnexal mass or complex lesion. There is normal arterial and normal venous vascularity. The left ovary is visualized. The left ovary measures 2.7 x 2.7 x 1.8 cm. There is a mildly complex left ovarian cyst measuring 1.8 x 1.3 x 1.1 cm. There is no visualized left adnexal mass or complex lesion. There is normal arterial and normal venous vascularity. There is minimal fluid in the cul-de-sac. The pre void volume of the bladder was 152 ml. Polycystic ovary disease: No. US/Transvaginal Non- IMPRESSION: Atypical-appearing fluid distended endometrium which likely contains a small amount of acute or recent blood. The endometrium less prominent than prior study and the masslike echogenicity distending the endometrium is much smaller than the prior study when it measured up to 3.5 cm. In correlation with pathology results. Cannot exclude underlying polyp and/or endometrial fibroid or atypia. Multi fibroid enlarged uterus. Electronically Signed: Maricel Benavides MD at 23:48 EDT Tel , Service support , CC: Cass Couch MD Manager In Training: Signed PELVIC (NON ) Observed: 09/06/2017 Status: F Source: [place] 2:47 PM [facility] REPOSITORY [facility] Imaging Services [address] [place] [address] [place] [address] Pelvic (Non ) MR#: [id number] Acct: [id number] Name: KITTY AGRAWAL Rep #: [id number] : 1975 F 42 From: Maricel Benavides MD PCP: Cass Couch MD Status: REG CLI Study: Pelvic (Non ) Date of Exam: 09/06/17 Exam# [id number] Ordering Dr: Cass Couch MD STUDY: ULTRASOUND OF THE FEMALE PELVIS - COMPLETE REASON FOR EXAM: Female, 42 years old. Abnormal Uterine bleeding LMP: Bleeding since July 21, 2017 TECHNIQUE: TECHNICAL QUALITY: Adequate. COMPARISON: July 16, 2017 FINDINGS: The uterus is anteverted and is in a midline position. The uterus measures 12.2 x 8.5 x 3.8 cm. Normal uterine cervix. The endometrium measures 9 mm in thickness, and there is a echogenic appearance of the endometrium which may represent acute blood. There is a focal echogenic nodular density within the periphery of the endometrium within the fundus measuring 7.6 x 5.7 mm. On image described is sagittal left there is a inhomogeneous appearance of the central aspect of the uterus. There appear to be masses on both sides of the endometrium which may measuring the endometrium somewhat difficult.. There is no demonstrated endometrial mass. There are several fibroids demonstrated. Measuring 4.2 x 4.5 x 4.3 cm, 1.7 x 1.4 x 0.9 cm, and 2.1 x 2.3 x 1.4 cm. I.U.D. - The patient does not have an I.U.D. The right ovary is visualized. The right ovary measures 1.5 x 1.2 x 1.1 cm. There is a small right ovarian cyst measuring 1.5 x 1.2 x 1.1 cm. There is no visualized right adnexal mass or complex lesion. There is normal arterial and normal venous vascularity. The left ovary is visualized. The left ovary measures 2.7 x 2.7 x 1.8 cm. There is a mildly complex left ovarian cyst measuring 1.8 x 1.3 x 1.1 cm. There is no visualized left adnexal mass or complex lesion. There is normal arterial and normal venous vascularity. There is minimal fluid in the cul-de-sac. The pre void volume of the bladder was 152 ml. Polycystic ovary disease: No. US/Pelvic (Non ) IMPRESSION: Atypical-appearing fluid distended endometrium which likely contains a small amount of acute or recent blood. The endometrium less prominent than prior study and the masslike echogenicity distending the endometrium is much smaller than the prior study when it measured up to 3.5 cm. In correlation with pathology results. Cannot exclude underlying polyp and/or endometrial fibroid or atypia. Multi fibroid enlarged uterus. Electronically Signed: Maricel Benavides MD at 23:48 EDT Tel , Service support , CC: Cass Couch MD Manager In Training: Signed CBC-COMPLETE BLOOD CNT Collected: 09/05/2017 Status: F Source: [place] [facility] NO DIFF 1:43 PM [facility] REPOSITORY TYPE CODE TESTS RESULT OUT OF RANGE REFERENCE UNITS LAB L100.1000 4.4-11.0 K/mm3 Normal WBC 7.1 LAB L100.1200 4.2-5.4 M/mm3 Low RBC 3.83 LAB L100.1300 12.0-15.0 g/dl Low HGB 11.9 LAB L100.1400 37-47 % Low HCT 36.1 LAB L100.1500 81-99 fL Normal MCV 94.3 LAB L100.1600 27.0-32.0 pg Normal MCH 31.1 LAB L100.1700 32-36 g/gl Normal MCHC 33.0 LAB L100.1810 11.6-14.6 % Normal RDW CV 12.0 LAB L100.1820 35.1-43.9 fl Normal RDW SD 40.9 LAB L100.1900 150-450 K/mm3 Normal PLT 235 LAB L100.2000 6.2-12.0 fl Normal MPV 10.6 Performed By: #### L100.0500 #### [facility] [address] [place], [address] HCG TITER QUANT., Collected: 09/05/2017 Status: F Source: [place] SERUM 1:43 PM [facility] REPOSITORY TYPE CODE TESTS RESULT OUT OF RANGE REFERENCE UNITS LAB L700.8000 <9 non-preg mIU/mL Normal HCG < 1 QUANT. Performed By: #### L700.8000 #### [facility] [address] [facility] [place], [address] CBC-COMPLETE BLOOD CNT Collected: 07/17/2017 Status: F Source: [place] NO DIFF 5:38 AM [facility] REPOSITORY TYPE CODE TESTS RESULT OUT OF RANGE REFERENCE UNITS LAB L100.1000 4.4-11.0 K/mm3 Normal WBC 6.3 LAB L100.1200 4.2-5.4 M/mm3 Low RBC 2.53 LAB L100.1300 12.0-15.0 g/dl Low HGB 7.6 LAB L100.1400 37-47 % Low HCT 23.3 LAB L100.1500 81-99 fL Normal MCV 92.1 LAB L100.1600 27.0-32.0 pg Normal MCH 30.0 LAB L100.1700 32-36 g/gl Normal MCHC 32.6 LAB L100.1810 11.6-14.6 % Normal RDW CV 12.8 LAB L100.1820 35.1-43.9 fl Normal RDW SD 43.6 LAB L100.1900 150-450 K/mm3 Normal PLT 157 LAB L100.2000 6.2-12.0 fl Normal MPV 10.1 Performed By: #### L100.0500 #### [facility] [address] [place], [address] HISTORY AND PHYSICAL Observed: 07/17/2017 Status: F Source: [place] EXAM 1:21 AM [facility] REPOSITORY [facility] Medical Records Department [address] [place], [place] [address] [address] History and Physical 07/17/17 0119 MR#: [id number] Acct: [id number] Name: KITTY AGRAWAL Rep #: [id number] : 1975 42 From: Cass Couch MD PCP: Cass Couch MD Status: REG [facility] Y Location: MS3 [id number] Problem List (1) Menorrhagia Status: Acute Qualifiers: Menorrahagia type: with regular cycle Qualified Code(s): N92.0 - Excessive and frequent menstruation with regular cycle History of Present Illness Date of Admission: 07/17/17 The patient is a 42 year old F with menorrhagia. Current treatment for menorrhagia via luteal phase Prometrium. This treatment to start next month. The patient used the luteal phase Prometrium for a few days this current cycle. Pelvic ultrasound reveals thickened endometrium and simple small cysts likely related to attempted ovulation from hormone imbalance. The patient has had a decrease of her hemoglobin during this visit. Need for D and C, hysteroscopy is reviewed. The review includes procedures, risks, blood transfusion and post op recover. All is consented and agreed to. All questions answered throughout our discussion with family present.] Past Medical History Allergies sulfamethoxazole [From ] Allergy (Verified 07/16/17 19:39) Hives trimethoprim [From ] Allergy (Verified 07/16/17 19:39) Hives Home Medications: Ambulatory Orders Medication Instructions Recorded Progesterone 300 mg PO DAILY 07/16/17 Surgical History: no surgical history Psychiatric History: No pertinent psych hx CARBOY FILLER History: No pertinent CARBOY FILLER history Lives: Spouse/ Significant Other Smoking Status: Never smoker Tobacco Use: Non-smoker Alcohol: None Drugs: None Review of Systems Constitutional: Denies: Chills, Fever, Weight Change HEENT: Denies: Difficulty Hearing, Difficulty Swallowing, Nasal bleeding, Nasal Congestion, Sore Throat Cardiovascular: Denies: Chest Pain, Palpitations Respiratory: Denies: Shortness of Breath, Wheezing Gastrointestinal: Denies: Constipation, Diarrhea, Nausea, Vomiting Genitourinary: Denies: Dysuria, Frequency, Hematuria, Incontinence, Urgency Musculoskeletal: Denies: Joint Pain, Muscle pain Skin: Denies: Lesions, Skin Changes Neurological: Denies: Focal weakness, Numbness Psychiatric: Denies: Anxiety, Depression Endocrine: Denies: Heat/ Cold Intolerance Hematologic/ Lymphatic: Denies: Easy Bleeding VTE Information - Inpt Only VTE Present on Admission: No VTE Mechan Device Prophylaxis: None VTE Pharm Prophylaxis ordered?: No Reason prophylaxis not ordered:: Procedure Not Indicated Patient Problems: Active and Suspected Problems Menorrhagia (Acute) - Physical Exam General: No apparent distress, Well developed, Well nourished HEENT: PERRLA, EOMI, Normocephalic Oral: Moist Mucosa Neck: Supple Abdomen: Soft, Non Tender, Non-Distended Extremities: No cyanosis, No edema Skin: No rashes, Other - No ulcers, lesions Psych/Mental Status: Normal Affect Vital Signs Temp Pulse Resp BP Pulse Ox 97.9 F 96 16 105/67 100 07/17/17 00:55 07/17/17 01:15 07/17/17 01:15 07/17/17 01:15 07/17/17 01:15 Oxygen Delivery Method Room Air Weight: 117 lb Body Mass Index (BMI) 20.0 Intake and Output for Last 24 Hours Output Total Balance -25 / -25 Laboratory Tests Past 24 Hrs WBC 9.3 RBC 3.30 L Hgb 10.1 L 8.4 L Hct 30.2 L WBC RBC Hgb Hct MCV MCH MCHC RDW RDW Differential Plt Count MPV Serum , Qual Blood Type O POSITIVE Antibody Screen NEGATIVE Assessment/Plan Active and Suspected Problems Menorrhagia (Acute) 1. Menorrhagia anemia present ultrasound with thickened endometrium D and C, hysteroscopy postop Depo-Provera for down regulation of the lining and the ovaries 2. Anemia supplements 07/17/17 0121 <Electronically signed by Cass Couch MD> Date Cass Couch MD Cosigner Signature: Date (if applicable) CC: Cass Couch MD Signed OPERATIVE REPORT Observed: 07/17/2017 Status: F Source: [place] 1:16 AM [facility] REPOSITORY [facility] Medical Records Department [address] [place] [address] Operative Report 07/17/17 0108 MR#: [id number] Acct: [id number] Name: KITTY AGRAWAL Rep #: [id number] : 1975 42 From: Cass Couch MD PCP: Cass Couch MD Status: REG [facility] Y Location: [address] Problem List (1) Menorrhagia Status: Acute Qualifiers: Menorrahagia type: with regular cycle Qualified Code(s): N92.0 - Excessive and frequent menstruation with regular cycle Report of Operation Date of Procedure: 07/17/17 Pre-Operative Diagnosis: menorrhagia and anemia Post-Operative Diagnosis: Same + thickened endometrium Surgery/Procedure Performed:: D and C, diagnostic hysteroscopy Description of Surgical Findings:: Pelvic exam under anesthesia: Uterus anterior and 11-12 week size. Fully mobile. Bilateral adnexa benign. Clots in the vaginal vault. Endometrium is thickened throughout. Type of Anesthesia:: Local MAC Anesthesiologist: Anna Viera Special Medications: Ancef 2grams Iv and 10cc of 1% Lidocaine to the cervix Specimen's removed: endometrium Drains: none Estimated Blood Loss (mL): 150cc Fluids Replaced: Lactated ringers Description of Procedure: Patient is a 42 year old white female, multigravid. Presents to the ER with menorrhagia day 7 or 8 of current menses. Recent diagnosis of menorrhagia due to hormone imbalance. Use of Prometrium per the patient a few days. Ultrasound with thickened endometrium and suspected small, bilateral ovarian ovulatory cysts. Need for D and C and hysteroscopy for the thickened endometrium as the source of vaginal bleeding and subsequent anemia. All consents and procedures discussed and obtained. The patient was taken to the surgery suite. She underwent MAC anesthesia and once found to be adequate was prepped and draped in the normal sterile fashion. Bladder emptied via a red rubber catheter. Time out occurred. Weighted speculum to the vagina. The anterior lip of the cervix was grasped and elevated via single tooth tenaculum. The cervix was injected with 10cc of 1%Lidocaine to the four quadrants of the cervix. Patient tolerated well. The os of the cervix easily dilated to accommodate a 5mm hysteroscope. Hysteroscopic evaluation revealed thickened endometrium of the entire uterine cavity. The hysteroscope was replaced by a sharp currette and removal of the endometrial tissue, gathering and sending to pathology for further evaluation. The hysteroscope was replaced into the endometrium with notation of removal of tissue. All instruments removed from the vagina. The sponge and instrument counts correct x 2. Patient awakened in stable condition. Grafts/Implants Used: none - Complications none - Admit VTE Documentation VTE Present on Admission: No VTE Mechan Device Prophylaxis: None VTE Pharm Prophylaxis ordered?: No Reason prophylaxis not ordered:: Treatment Not Indicated 07/17/17 0116 <Electronically signed by Cass Couch MD> Date Cass Couch MD CC: Cass Couch MD Signed DISCHARGE INSTRUCTION Observed: 07/17/2017 Status: F Source: [place] 1:00 AM [facility] REPOSITORY [facility] Medical Records Department [address] [place] [address] Instructions for Home/Discharge Instructions 07/17/17 0056 MR#: [id number] Acct: [id number] Name: KITTY AGRAWAL Rep #: [id number] : 1975 42 From: Cass Couch MD PCP: Cass Couch MD Status: REG [facility] Discharge Diet: No Restrictions, - - Increase water intake to 100 ounces daily x 72 hours postop Discharge Activity: Return to Normal Activity, May Shower, May Take a Tub Bath - in 2 weeks. Return to work on:: 07/19/17 May shower in (days): 0 - TODAY May resume sexual activity in: 3 weeks Weight Bearing Status: Full weight bearing Lifting Restrictions: 10 pounds x 1 week Additional Activity Instructions:: Reclined and rest frequently with intermittent ambulation 72 hours after surgery Call your doctor if your incision/area has: Sudden Increased Bleeding, Increased Pain/ Swelling, Foul Smelling Discharge Call your doctor if you observe: Fever of 101 or Higher, Inability to urinate, Inability to have a bowel movement Cleanse incision/area with: Soap AND Water Additional Dressing/Incision Instructions:: Ambulation is encouraged with rest in between the first 72 hours after surgery. Allergies/Adverse Reactions: Allergies sulfamethoxazole [From ] Allergy (Verified 07/16/17 19:39) Hives trimethoprim [From ] Allergy (Verified 07/16/17 19:39) Hives Medications to take at Discharge Progesterone 300 mg PO DAILY 07/16/17 Primary Care Physician: Cass Couch MD [Primary Care Provider] - Please Follow Up With: Cass Couch MD When: 1 week after surgery. Please call office to schedule. 07/17/17 0100 <Electronically signed by Cass Couch MD> Date Cass Couch MD CC: Cass Couch MD OPERATIVE REPORT Observed: 07/17/2017 Status: F Source: [place] 12:54 AM [facility] REPOSITORY [facility] Medical Records Department [address] [place] [address] Operative Report 07/17/1749 MR#: [id number] Acct: [id number] Name: KITTY AGRAWAL Rep #: [id number] : 1975 42 From: Cass Couch MD PCP: Cass Couch MD Status: [facility] Y Location: [place] [address] Problem List (1) Menorrhagia Status: Acute Qualifiers: Menorrahagia type: with regular cycle Qualified Code(s): N92.0 - Excessive and frequent menstruation with regular cycle Report of Operation Date of Procedure: 07/17/17 Pre-Operative Diagnosis: menorrhagia and anemia Post-Operative Diagnosis: Same + thickened endometrium Surgery/Procedure Performed:: D and C, diagnostic hysteroscopy Description of Surgical Findings:: Pelvic exam under anesthesia: Uterus anterior and 11-12 week size. Fully mobile. Bilateral adnexa benign. Clots in the vaginal vault. Endometrium is thickened throughout. Type of Anesthesia:: Local MAC Anesthesiologist: Anna Viera Special Medications: Ancef 2grams Iv and 10cc of 1% Lidocaine to the cervix Specimen's removed: endometrium Drains: none Estimated Blood Loss (mL): 150cc Fluids Replaced: Lactated ringers Grafts/Implants Used: none - Complications none - Admit VTE Documentation VTE Present on Admission: No VTE Mechan Device Prophylaxis: None VTE Pharm Prophylaxis ordered?: No Reason prophylaxis not ordered:: Procedure Not Indicated 07/17/17 0054 <Electronically signed by Cass Couch MD> Date Cass Couch MD CC: Cass Couch MD Signed CONSULTATION Observed: 07/17/2017 Status: F Source: [place] 12:29 AM [facility] REPOSITORY [facility] Medical Records Department [address] [id number] Consultation 07/17/17 0022 MR#: [id number] Acct: [id number] Name: KITTY AGRAWAL Rep #: [id number] : 1975 42 From: Cass Couch MD PCP: Cass Couch MD Status: REG [facility] Y Location: [address] Reason for Consult Date of Consultation: 07/17/17 History of Present Illness: The patient is a 42 year old F with menorrhagia. Current treatment for menorrhagia via luteal phase Prometrium. This treatment to start next month. The patient used the luteal phase Prometrium for a few days this current cycle. Pelvic ultrasound reveals thickened endometrium and simple small cysts likely related to attempted ovulation from hormone imbalance. The patient has had a decrease of her hemoglobin during this visit. Need for D and C, hysteroscopy is reviewed. The review includes procedures, risks, blood transfusion and post op recover. All is consented and agreed to. All questions answered throughout our discussion with family present.] Past Medical History Allergies sulfamethoxazole [From ] Allergy (Verified 07/16/17 19:39) Hives trimethoprim [From ] Allergy (Verified 07/16/17 19:39) Hives Home Medications: Ambulatory Orders Medication Instructions Recorded Progesterone 300 mg PO DAILY 07/16/17 Surgical History: no surgical history Psychiatric History: No pertinent psych hx CARBOY FILLER History: No pertinent CARBOY FILLER history Lives: Spouse/ Significant Other Smoking Status: Never smoker Tobacco Use: Non-smoker Alcohol: None Drugs: None Review of Systems Constitutional: Denies: Chills, Fever, Weight Change HEENT: Denies: Difficulty Hearing, Difficulty Swallowing, Nasal bleeding, Nasal Congestion, Sore Throat Cardiovascular: Denies: Chest Pain, Palpitations Respiratory: Denies: Shortness of Breath, Wheezing Gastrointestinal: Denies: Constipation, Diarrhea, Nausea, Vomiting Genitourinary: Denies: Dysuria, Frequency, Hematuria, Incontinence, Urgency Musculoskeletal: Denies: Joint Pain, Muscle pain Skin: Denies: Lesions, Skin Changes Neurological: Denies: Focal weakness, Numbness Psychiatric: Denies: Anxiety, Depression Endocrine: Denies: Heat/ Cold Intolerance Hematologic/ Lymphatic: Denies: Easy Bleeding Subjective: Dizzy and light-headed. No nausea and no vomiting. Vaginal bleeding present. - Physical Exam General: Alert Oral: Moist Mucosa Neck: No Nuchal Rigidity, Thyroid Normal Size and Texture Abdomen: Bowel Sounds Present Skin: No rashes, Other - No ulcers, lesions Musculoskeletal: No Tenderness to Palpation of Joints or Extremities, No Muscle Wasting Neurological: Cranial nerves II-XII grossly intact Psych/Mental Status: Normal Affect Vital Signs Temp Pulse Resp BP Pulse Ox 98.6 F 98 16 124/69 H 98 07/16/17 23:58 07/17/17 00:13 07/17/17 00:13 07/17/17 00:13 07/17/17 00:13 Oxygen Delivery Method Room Air Weight: 117 lb Body Mass Index (BMI) 20.0 Laboratory Tests Past 24 Hrs WBC 9.3 RBC 3.30 L Hgb 10.1 L 8.4 L Hct 30.2 L WBC RBC Hgb Hct MCV MCH MCHC RDW RDW Differential Plt Count MPV Serum , Qual Blood Type Pending Antibody Screen Pending Assessment/Plan 1. Menorrhagia anemia present ultrasound with thickened endometrium D and C, hysteroscopy postop Depo-Provera for down regulation of the lining and the ovaries 2. Anemia supplements 07/17/17 0029 <Electronically signed by Cass Couch MD> Date Cass Couch MD Cosigner Signature (if applicable): Date CC: Cass Couch MD Signed ENDOMETRIAL BX/CURETTINGS Observed: 07/17/2017 Status: F Source: [place] 12:15 AM [facility] REPOSITORY Patient: KITTY AGRAWAL : 1975 (42/F) Acct Num: [id number] Phys: Cass Couch MD Unit Num: [id number] Loc: MS3 [id number] Specimen: [id number] Received: 07/18/17 - 1029 Spec Type: ENDOM BX/C TISSUES TISSUES: Endometrium, NOS ADDENDUM Addendum Number 1 During QC review, rare plasma cells are noted, findings are suggestive of mild chronic endometritis. SJ:amara 07/21/17 Case has been reviewed in consultation with Dr. Cherry who concurs with the above diagnosis. IDC:AM Addendum Signed Madi Alcantar 07/21/17 <signature on file> GROSS DESCRIPTION Received in fixative is one container labeled with the patient's name and designated endometrial curettings. The specimen consists of multiple fragments of sauceda hemorrhagic soft tissue mixed with blood clot that in aggregate measure 7.5 x 3 x 0.3 cm. The entire specimen is submitted in three cassettes. / SJ:amara 07/18/17 TC:5 CPT: 16141 HEADER OPERATION: Hysteroscopy, dilation and curettage PRE-OP DIAGNOSIS: Menorrhagia TISSUE SUBMITTED: Endometrial curettings MICROSCOPIC DESCRIPTION Slides are reviewed. MICROSCOPIC DIAGNOSIS Endometrial curettings: Disordered proliferative endometrium. Fragments of benign endocervical mucosa. Fragments of myometrium. SJ:amara 07/19/17 Signed Madi Alcantar 07/19/17 <signature on file> Performed By: #### PEMB #### [facility] [address] [place], [address] HEMOGLOBIN Collected: 07/16/2017 Status: F Source: [place] 11:46 PM [facility] REPOSITORY TYPE CODE TESTS RESULT OUT OF RANGE REFERENCE UNITS LAB L100.1300 12.0-15.0 g/dl Low HGB 8.4 Performed By: #### L100.1300 #### [facility] [address] [place], [address] TYPE AND SCREEN Collected: 07/16/2017 Status: F Source: [place] 11:46 PM [facility] REPOSITORY Order Comment: Has pt arrived? Y Reason for Type AND Screen/Red Cells: HEMORRHAGE, VAGINAL Type of Surgery: D AND C TYPE CODE TESTS RESULT OUT OF RANGE REFERENCE UNITS LAB B10.0800 O Normal BLOOD TYPE GEL POSITIVE LAB B100.4000 Normal Antibody NEGATIVE Screen Performed By: #### B101.7450 #### [facility] [address] [place] [place], [address] EMERGENCY DEPARTMENT Observed: 07/16/2017 Status: F Source: [place] SUMMARY 11:37 PM [facility] REPOSITORY [facility] Medical Records Department [address] [place] [address] Emergency Department Summary 07/16/172013 MR#: [id number] Acct: [id number] Name: KITTY AGRAWAL Rep #: [id number] : 1975 42 From: Brien Love MD PCP: Cass Couch MD Status: REG ER - ER Visit Summary Date of Service: 07/16/17 Chief Complaint: Vaginal bleeding History of Present Illness: The patient is a 42 F Ab0. The last 2 menstrual cycles had heavier bleeding than normal. She is on day 8 of her most recent menstrual cycle with heavier bleeding now with clots. No significant pain. Intermittent cramping. She did see her PURCHASING DIRECTOR physician Dr. Cass Couch within the last week who did a progesterone level and started her on Prometrium. She denies any bruising. She is on no blood thinners. Other than the Prometrium she is on no other medication. She denies any rectal bleeding or bloody noses. Physical Examination: Well-appearing middle-age female. Vital signs are stable afebrile. HEENT exam unremarkable. Neck nontender no lymphadenopathy. Lungs good auscultation bilaterally. Heart rate about 105 no murmur. Abdomen soft nontender nondistended no giving or masses. Normal bowel sounds no peritoneal signs. I do not feel an enlarged uterus on the abdominal exam. Extremities moves all 4. Neurovascular intact. No edema. Neurologically awake alert without focal deficits. Back exam nontender. Test Results: CBC normal white count. Showed an H AND H of 10.1 and 30 previously the hemoglobin was 12.5. about 2 weeks ago. Serum test negative. Orthostatic vital signs were negative. Emergency Department Course and Treatment: Pelvic exam and screening labs. Exam showed moderate vaginal bleeding with bright red blood and clots. That was cleared out. No adnexal tenderness or masses. The uterus did not feel significantly enlarged nor did I palpate any large fibroids. Treatment Plan: Patient continued to bleed. A pelvic ultrasound has been performed but no official reading as of yet. I spoke with Dr. Ren she is coming in to evaluate the patient and will make a determination if the patient needs to go to the OR. We will obtain a second H AND H. Patient will be typed and screened. She had a transient episode of bradycardia and hypotension but that is since resolved. We are hanging a liter of normal saline. The second H AND H was obtained before IV fluids were started. Disposition: Discharge Impression: Acute heavy vaginal bleeding Anemia This note was generated with [employer] dictation software. It may contain incorrect words, spelling, and punctuation that were not noted in review of the chart prior to signing ED Disposition - Plan for ED Patient: Chief Complaint: Vag Bleeding Referrals: Cass Couch MD [Primary Care Provider] - What to do if you have Problems For any increased pain, shortness of breath, bleeding, nausea or vomiting, chest pain, or any unexpected problems, contact your Primary Care Provider. Call [facility] ([phone]) or report to the closest Emergency Room. Call 911 if necessary. 07/16/17 5757 <Electronically signed by Brien Love MD> Date Brien Love MD Cosigner Signature (If Indicated): Date CC: Cass Couch MD TRANSVAGINAL Observed: 07/16/2017 Status: F Source: [place] NON- 9:16 PM [facility] REPOSITORY [facility] Imaging Services [address] [place] [address] Transvaginal Non- MR#: [id number] Acct: [id number] Name: KITTY AGRAWAL Rep #: [id number] : 1975 F 42 From: Carlyn Albright MD PCP: Cass Couch MD Status: REG ER Study: Transvaginal Non- Date of Exam: 07/16/17 Exam# [id number] Ordering Dr: Brien Love MD STUDY: PELVIC ULTRASOUND TRANSVAGINAL REASON FOR EXAM: Female, 42 years old. Abnormal bleeding LMP: July 09, 2017 TECHNIQUE: Transverse and longitudinal imaging of the pelvis was obtained transvaginally using real-time ultrasound. COMPARISON: None. FINDINGS: The uterus is anteverted and is in a midline position. The uterus measures 11.2 x 6.0 x 7.5 cm. The cervix is unremarkable. The endometrium measures 35.4 mm in thickness, and is hyperechoic and heterogeneous. There is minimal fluid in the endometrial canal. There is no demonstrated endometrial mass. There is no demonstrated myometrial mass. I.U.D. - The patient does not have an I.U.D. The right ovary is visualized. The right ovary measures 4.8 x 3.4 x 2.3 cm. There is a cystic mass in the right ovary measuring 2.3 x 1.2 x 1.6 cm. There is no visualized right adnexal mass or complex lesion. There is normal arterial and normal venous vascularity. The left ovary is visualized. The left ovary measures 3.1 x 3.1 x 3.1 cm. There is a cystic mass with internal echoes in the left ovary measuring measuring 2.6 x 1.9 x 2.7 cm. There is no visualized left adnexal mass or complex lesion. There is normal arterial and normal venous vascularity. There is minimal fluid in the cul-de-sac. The urinary bladder was not imaged. US/Transvaginal Non- IMPRESSION: The endometrium is thickened and heterogeneous. There is minimal fluid in the endometrial canal. An endometrial mass cannot be excluded. There are cysts and follicles in both ovaries. A simple appearing cyst in the right ovary measures 2.3 cm in largest diameter. A probable hemorrhagic cyst in the left ovary measures 2.7 cm in largest diameter. There is minimal free fluid in the pelvis. Electronically Signed: Carlyn Albright MD at 23:48 EDT Tel Direct: [phone], Service support , CC: Cass Couch MD; Brien Love MD Manager In Training: Signed CBC-COMPLETE BLOOD CNT Collected: 07/16/2017 Status: F Source: [place]RI[place] NO DIFF 8:30 PM [facility] REPOSITORY TYPE CODE TESTS RESULT OUT OF RANGE REFERENCE UNITS LAB L100.1000 4.4-11.0 K/mm3 Normal WBC 9.3 LAB L100.1200 4.2-5.4 M/mm3 Low RBC 3.30 LAB L100.1300 12.0-15.0 g/dl Low HGB 10.1 LAB L100.1400 37-47 % Low HCT 30.2 LAB L100.1500 81-99 fL Normal MCV 91.5 LAB L100.1600 27.0-32.0 pg Normal MCH 30.6 LAB L100.1700 32-36 g/gl Normal MCHC 33.4 LAB L100.1810 11.6-14.6 % Normal RDW CV 12.7 LAB L100.1820 35.1-43.9 fl Normal RDW SD 42.7 LAB L100.1900 150-450 K/mm3 Normal PLT 206 LAB L100.2000 6.2-12.0 fl Normal MPV 10.1 Performed By: #### L100.0500 #### [facility] [place], [address] ,SERUM,HCG QUALI. Collected: Status: F Source: ADRIANO 07/16/2017 8:30 PM [facility] REPOSITORY TYPE CODE TESTS RESULT OUT OF REFERENCE UNITS RANGE LAB L700.6700 =>Qualitative mIU/mL Normal HCG Qual < 1 triggr LAB L700.7000 0-9 Nonpreg Negative Normal HCGSQUAL NEGATIVE Performed By: #### L700.6800 #### [facility] [address] [place], [place], [address] CBC-COMPLETE BLOOD CNT Collected: 06/29/2017 Status: F Source: [place]RI[place] NO DIFF 5:09 PM [facility] REPOSITORY TYPE CODE TESTS RESULT OUT OF RANGE REFERENCE UNITS LAB L100.1000 4.4-11.0 K/mm3 Normal WBC 6.7 LAB L100.1200 4.2-5.4 M/mm3 Low RBC 4.10 LAB L100.1300 12.0-15.0 g/dl Normal HGB 12.5 LAB L100.1400 37-47 % Normal HCT 37.9 LAB L100.1500 81-99 fL Normal MCV 92.4 LAB L100.1600 27.0-32.0 pg Normal MCH 30.5 LAB L100.1700 32-36 g/gl Normal MCHC 33.0 LAB L100.1810 11.6-14.6 % Normal RDW CV 12.5 LAB L100.1820 35.1-43.9 fl Normal RDW SD 41.8 LAB L100.1900 150-450 K/mm3 Normal PLT 214 LAB L100.2000 6.2-12.0 fl Normal MPV 10.7 Performed By: #### L100.0500 #### [facility] [address] [place], [place], [address] HEMOGLOBIN A1C Collected: 06/29/2017 Status: F Source: ADRIANO 5:09 PM [facility] REPOSITORY TYPE CODE TESTS RESULT OUT OF RANGE REFERENCE UNITS LAB L501.9985 4.2-6.3 % Normal HGB A1C 4.9 Performed By: #### L501.9985 #### [facility] [address] [place], [address] HCG TITER QUANT., Collected: 06/29/2017 Status: F Source: [place] SERUM 5:09 PM [facility] REPOSITORY TYPE CODE TESTS RESULT OUT OF RANGE REFERENCE UNITS LAB L700.8000 <9 non-preg mIU/mL Normal HCG < 1 QUANT. Performed By: #### L700.8000 #### [facility] [address] [place], [address] TESTOSTERONE, SERUM TOTAL Collected: 06/29/2017 Status: F Source: [place] 5:09 PM [facility] REPOSITORY TYPE CODE TESTS RESULT OUT OF REFERENCE UNITS RANGE LAB L509.3000 ng/dL Testosterone Normal 15.49 Result Comment: NORMAL REFERENCE RANGES MALE AGE <50 123.06 - 813.86 ng/dL MALE AGE >50 89.98 - 780.10 ng/dL FEMALE PREMENOPAUSE AGE 21 - 60 9.01 - 47.94 ng/dL FEMALE POSTMENOPAUSE AGE 45 - 89 <7.00 - 45.62 ng/dL REFERENCE RANGE AND METHODOLOGY CHANGED 02/16/2017 Performed By: #### L509.3000, L509.4001 #### [facility] [address] [place], [address] PROGESTERONE LEVEL Collected: 06/29/2017 Status: F Source: [place] 5:09 [facility] REPOSITORY TYPE CODE TESTS RESULT OUT OF REFERENCE UNITS RANGE LAB L509.4001 See Comment ng/mL Progesterone Normal 12.17 Result Comment: Progesterone Reference Table: UNITS Female: Follicular 0.15 - 1.40 ng/mL Luteal 3.34 - 25.56 ng/mL Mid-luteal 4.44 - 28.03 ng/mL Postmenopausal 0.0 - 0.73 ng/mL : 1st Trimester 11.22 - 90.00 ng/mL 2nd Trimester 25.55 - 89.40 ng/mL 3rd Trimester 48.40 -422.50 ng/mL Performed By: #### L509.3000, L509.4001 #### [facility] [address] [place], [address] FREE T3 Collected: 06/29/2017 Status: F Source: [place] 5:09 [facility] REPOSITORY TYPE CODE TESTS RESULT OUT OF RANGE REFERENCE UNITS LAB L501.43763 2.18-3.98 pg/mL Normal FREE T3 3.0 Performed By: #### L501.41815, L501.9520, L506.0400, L3300.1750 #### [facility] [address] [place], [place], [address] THYROID STIM HORMONE Collected: 06/29/2017 Status: F Source: [place]RIANO (TSH) 5:09 PM [facility] REPOSITORY TYPE CODE TESTS RESULT OUT OF RANGE REFERENCE UNITS LAB L501.9520 0.358-3.74 uIU/mL Normal TSH 1.54 Performed By: #### L501.37563, L501.9520, L506.0400, L3300.1750 #### [facility] [address] [place], [address] T4 FREE DIRECT Collected: 06/29/2017 Status: F Source: ADRIANO 5:09 PM [facility] REPOSITORY TYPE CODE TESTS RESULT OUT OF RANGE REFERENCE UNITS LAB L506.0400 0.76-1.46 ng/dL Normal T4 FREE 1.17 DIRECT Performed By: #### L501.54923, L501.9520, L506.0400, L3300.1750 #### [facility] [address], [address] ESTRADIOL Collected: 06/29/2017 Status: F Source: [place]RI[place]O 5:09 PM [facility] REPOSITORY TYPE CODE TESTS RESULT OUT OF RANGE REFERENCE UNITS LAB L3300.1750 pg/mL Normal ESTRADIOL 176.1 Result Comment: NORMAL REFERENCE RANGES FEMALE FOLLICULAR 21.4 - 164.8 pg/mL MID-CYCLE PEAK 49.9 - 367.2 pg/mL LUTEAL 40.2 - 259.0 pg/mL POST-MENOPAUSAL ON MHT <11.0 - 462.1 pg/mL NOT ON MHT <11.0 - 58.3 pg/mL MALE <11.0 - 52.5 pg/mL NOTE: [facility] HAS CONFIRMED THE DRUG FULVETRANT (FASLODEX) MAY CAUSE FALSELY ELEVATED ESTRADIOL RESULTS WHEN USING THIS TEST METHOD. IF PATIENT IS TAKING FULVESTRANT AN ALTERNATIVE METHOD SHOULD BE USED TO DETERMINE ESTRADIOL CONCENTRATION. Performed By: #### L501.64286, L501.9520, L506.0400, L3300.1750 #### [facility] [address] [place], [address] ALLERGIES ALLERGIES DATE TYPE / CODE NAME / CODE REACTION SEVERITY SOURCE 01/16/2018 Drug sulfamethoxa Hives Unknown Adriano [facility] Allergy/4160 zole/[id number] Hospital 92936(SNOMED 827(RXNORM) Repository CT) 01/16/2018 Drug trimethoprim Hives Unknown Adriano [facility] Allergy/4160 /[id number]( Hospital 91032(SNOMED RXNORM) Repository CT) ENCOUNTERS ENCOUNTERS ADMIT/DISCHARGE ACCOUNT ADMITTING ENCOUNTER LOCATION SOURCE NUMBER CLASS 03/17/2018 [id number] Ambulatory [place] 2 [facility] ing:OPBI Repository 01/16/2018/ [id number] Ambulatory BMSBuilding:B [place] 8 3 [place].[facility] Repository 12/16/2017/ [id number] Ambulatory BMSBuilding:B [place] 8 1 MS.[facility] Repository 12/02/2017 [id number] Ambulatory BMSBuilding:B [place] 5 MS.CF.[facility] Repository 12/01/2017/ [id number] Ambulatory [place] 8 7 [facility] ing:SDCRoom: Repository [id number] 12/01/2017 [id number] Ambulatory BMSBuilding:B [place] 3 MS.CF.[facility] Repository 10/17/2017/ [id number] Ambulatory BMSBuilding:B [place] 8 8 MS.[facility] Repository 09/29/2017/ [id number] Emergency Adriano [place] 8 1 [facility] Hospital ing:ED Repository 09/06/2017 [id number] Ambulatory Adriano [place] 8 [facility] Hospital ing:US Repository 09/05/2017 [id number] Ambulatory [place] 3 [facility] Hospital ing:WOBLAB Repository 07/17/2017/ [id number] Cass Couch Ambulatory Adri[place] 8 1 [facility] ing:JF9Ankx: Repository [id number]: 1 06/29/2017 [id number] Ambulatory Adri[place] 9 [facility] ing:WOBLAB Repository PAYERS PAYERS ENCOUNTER GUARANTOR PAYER SUBSCRIBER SOURCE 03/17/2018 TIFFANIE [id number] Insurance:MEDICAL MILLERDOB: [address] [address]Dkw: Number: Repository [id number] (HP) Date:0187-38-20MT [place] [phone]: 03/17/2018 Secondary NOT GIVENUNK [place] Insurance:SELF PAY [facility] Number: Effective Repository Date:2018-01-17 01/16/2018 TIFFANIE [id number] Insurance:MEDICAL MILLERDOB: [address] [address]Zgq: Number: Repository [id number] (HP) Date:[id number] [place] [phone]: 01/16/2018 Secondary NOT GIVENUNK [place] Insurance:SELF PAY [facility] Number: Effective Repository Date:2018-01-16 12/16/2017 TIFFANIE [id number] Insurance:MEDICAL MILLERDOB: [address] [address]Smi: Number: Repository [id number] (HP) Date:8966-56-23[place] [phone]: 12/16/2017 Secondary NOT GIVENUNK [place] Insurance:SELF PAY [facility] Number: Effective Repository Date:2017-12-16 12/02/2017 TIFFANIE [id number] Insurance:MEDICAL MILLERDOB: [address] [address]Tlr: Number: Repository [id number] (HP) Date:8429-29-18DY [address] [place], [place] [phone]: 12/02/2017 Secondary NOT GIVENUNK [place] Insurance:SELF PAY [facility] Number: Effective Repository Date:2017-12-02 12/01/2017 TIFFANIE [id number] Insurance:MEDICAL MILLERDOB: [facility] [address]Adq: Number: Repository [id number] (HP) Date:0265-45-18HK [place] [phone]: 12/01/2017 Secondary NOT GIVENUNK Adriano Insurance:SELF PAY [facility] Number: Effective Repository Date:2017-10-18 12/01/2017 Tiffanie [id number] Insurance:MEDICAL MILLERDOB: [address] [address]Knf: Number: Repository [id number] (HP) Date:[id number] [address]PQ: 12/01/2017 Secondary NOT GIVENUNK [place] Insurance:SELF PAY [facility] Number: Effective Repository Date:2017-12-01 10/17/2017 Tiffanie [id number] Insurance:MEDICAL MILLERDOB: [address] [address]Fmo: Number: Repository [id number] (HP) Date:9606-83-50ZW [address] [address]EX: 10/17/2017 Secondary NOT GIVENUNK Adriano Insurance:SELF PAY [facility] Number: Effective Repository Date:2017-10-06 09/29/2017 Tiffanie [id number] Insurance:MEDICAL [facility]ER[facility] [address]Glw: Number: Repository [id number] (HP) Date:6998-98-48FJ [address] [place] [phone]: 09/29/2017 Secondary NOT GIVENUNK Adri[place] Insurance:SELF PAY [facility] Number: Effective Repository Date:2017-09-29 09/06/2017 Tiffanie [id number] Insurance:MEDICAL MILLERDOB[facility] [address]Wfb: Number: Repository [id number] (HP) Date:5334-38-36SU [place] [phone]: 09/06/2017 Secondary NOT GIVENUNK [place] Insurance:SELF PAY [facility] Number: Effective Repository Date:2017-09-06 09/05/2017 Tiffanie Primary TIFFANIE [id number] Insurance:MEDICAL MILLERDOB: [facility] [address]Ufs: Number: Repository [id number] (HP) Date:3603-29-02IA [place] [phone]: 09/05/2017 Secondary NOT GIVENUNK [place] Insurance:SELF PAY [facility] Number: Effective Repository Date:2017-09-05 07/17/2017 Tiffanie Primary TIFFANIE [id number] Insurance:MEDICAL MILLERDOB: [facility] [address] [address]Tpv: Number: Repository [id number] (HP) Date:0539-95-53KI [address] [address]GB: 07/17/2017 Secondary NOT GIVENUNK Adriano Insurance:SELF PAY [facility] Number: Effective Repository Date:2017-07-16 06/29/2017 Tiffanie Primary TIFFANIE [id number] Insurance:MEDICAL MILLERDOB: [facility] [address]oud[address] [address]Qdh: Number: Repository [id number] (HP) Date:3233-08-03CZ [address] [address]VE: 06/29/2017 Secondary NOT GIVENUNK [place] Insurance:SELF PAY [facility] Effective Repository Date:2017-06-29
== END ==
PROVIDERS: Referring Provider Obstetrics & Gynecology; Visit Provider Obstetrics & Gynecology
DX: Z12.31 Encounter for screening mammogram for malignant neoplasm of breast (principal)
CPT/HCPCS: 77063; 77067

== ENCOUNTER → 2019-03-27 08:16 | Outpatient (CLI) | payer OTHER, SELFPAY ==
[2018-01-16 09:19] VITALS: BMI 19.8
--- NOTE | 2019-03-27 08:17 | BI_ITS ---
MAMMOGRAPHY - BILATERAL SCREENING REASON FOR EXAM: Female, 43 years old. Routine annual screening examination. PERTINENT HISTORY: Grandmother with breast cancer. TECHNIQUE: Digital bilateral breast river (3D mammographic acquisition) in the CC and MLO projections. 2-D mediolateral oblique (MLO) and craniocaudad (CC) views of both breasts were obtained. CAD: Full Field Digital Mammography with Computer Added Detection was performed. COMPARISON: Comparison is made with prior study dated March 17, 2018 and September 02, 2016. FINDINGS: Breast Composition: The breasts are extremely dense, which lowers the sensitivity of mammography. There are no dominant masses or suspicious calcifications. There are 2 well-defined retroareolar nodules in the left breast. The larger measures 1.4 cm. Correlation with ultrasound is recommended. No other significant abnormalities are identified. BI/SCREEN MAMM (CAD) W/RIVER BILAT IMPRESSION: 2 well-defined left retroareolar nodular densities. Correlation with ultrasound is recommended. ASSESSMENT CATEGORY: BIRADS Category 0: Incomplete. Need additional imaging evaluation. A letter regarding these results will be sent to the patient by the facility within 30 days. Approximately 10% of breast cancers are not detected by mammography. A normal mammogram should not delay biopsy of a clinically suspicious abnormality. [id number] Electronically Signed: Erik Reynolds, at 9:15 EST , Service support ,
== END ==
PROVIDERS: Referring Provider Obstetrics & Gynecology; Visit Provider Obstetrics & Gynecology
DX: Z12.31 Encounter for screening mammogram for malignant neoplasm of breast (principal)
CPT/HCPCS: 77063; 77067

== ENCOUNTER → 2019-03-29 07:57 | Outpatient (CLI) | payer OTHER, SELFPAY ==
[2018-01-16 09:19] VITALS: BMI 19.8
--- NOTE | 2019-03-29 08:01 | US_ITS ---
STUDY: ULTRASOUND BREAST - LEFT REASON FOR EXAM: Female, 43 years old. Abnormal screening mammogram. TECHNIQUE: Axial and longitudinal images of the LEFT breast were performed with a high resolution ultrasound transducer. # OF IMAGES: 21 COMPARISON: Comparison is made with prior mammogram dated September 17, 2019 and prior ultrasound of the left breast dated August 29, 2015. FINDINGS: LEFT Breast: The mammographic abnormality corresponds to 1.5 cm x 1.9 signed by 0.6 cm cyst. This is at the 6:00 position of the breast at 1 cm from nipple. There is also evidence of a 6 mm x 5 mm x 3 mm cyst at the 6:00 position of the breast at 6 cm from nipple. US/Breast Limited Unilateral IMPRESSION: The mammographic abnormality corresponds to 2 adjacent cysts at the 6:00 position of the breast at 1 cm from nipple. This corresponds to the mammographic abnormality. ASSESSMENT CATEGORY: BIRADS Category 2: Benign. A letter regarding these results will be sent to the patient by the facility within 30 days. Electronically Signed: Erik Reynolds, at 9:14 EST , Service support ,
== END ==
PROVIDERS: Referring Provider Obstetrics & Gynecology; Visit Provider Obstetrics & Gynecology
DX: R92.8 Other abnormal and inconclusive findings on diagnostic imaging of breast (principal)
CPT/HCPCS: 76642

== ENCOUNTER → 2019-09-24 07:54 | Outpatient (CLI) | payer OTHER, SELFPAY ==
[2018-01-16 09:19] VITALS: BMI 19.8
[2019-04-05 08:43] VITALS: BMI 19.8
--- NOTE | 2019-09-24 07:55 | BI_ITS ---
MAMMOGRAPHY - UNILATERAL DIAGNOSTIC: LEFT BREAST REASON FOR EXAM: Female, 44 years old. Six-month follow-up examination for left breast cysts. PERTINENT HISTORY: Grandmother with breast cancer. TECHNIQUE: Digital unilateral breast audrey (3D mammographic acquisition) in the CC and MLO projections. 2-D mediolateral oblique (MLO) and craniocaudad (CC) views of both breasts were obtained. CAD: Full Field Digital Mammography with Computer Added Detection was performed. COMPARISON: Comparison is made with prior study dated 09-17-19 and 03-17-18. FINDINGS: Breast Composition: The breasts are extremely dense, which lowers the sensitivity of mammography. There is a 1.4 cm x 1.1 cm well-defined nodule in the medial retroareolar region of the left breast. This is essentially unchanged. Correlation with ultrasound is recommended for further evaluation. No other significant abnormalities are identified. There has been no significant change since the prior study. BI/DIAG MAMM W/CAD, UNILAT IMPRESSION: Stable unilateral diagnostic mammogram. Targeted ultrasound of the retroareolar region of the left breast as described is recommended for follow-up. ASSESSMENT CATEGORY: BIRADS Category 0: Incomplete. Need additional imaging evaluation. A letter regarding these results will be sent to the patient by the facility within 30 days. Approximately 10% of breast cancers are not detected by mammography. A normal mammogram should not delay biopsy of a clinically suspicious abnormality. Electronically Signed: Erik Reynolds, at 9:12 EDT , Service support ,
--- NOTE | 2019-09-24 07:55 | US_ITS ---
STUDY: ULTRASOUND BREAST - LEFT REASON FOR EXAM: Female, 44 years old. Six-month follow-up examination for left breast cysts. TECHNIQUE: Axial and longitudinal images of the LEFT breast were performed with a high resolution ultrasound transducer. # OF IMAGES: 12 COMPARISON: Comparison is made with prior mammogram done earlier in the day as well as prior ultrasound of the left breast dated 03-29-19. FINDINGS: LEFT Breast: The mammographic abnormality corresponds to 1.5 cm x 1.8 cm x 0.7 cm cyst in the retroareolar region of the breast. This is at the 6 o''clock position breast at one sinus from nipple. The previously seen 6 mm cyst is not seen at this time. US/Breast Limited Unilateral IMPRESSION: Essentially stable 1.5 cm x 1.8 cm x 0.7 cm cyst at the 6 o''clock position of the breast at 1 cm from nipple. ASSESSMENT CATEGORY: BIRADS Category 2: Benign. A letter regarding these results will be sent to the patient by the facility within 30 days. Electronically Signed: Erik Reynolds, at 9:13 EDT , Service support ,
== END ==
PROVIDERS: Referring Provider Obstetrics & Gynecology; Visit Provider Obstetrics & Gynecology
DX: R92.8 Other abnormal and inconclusive findings on diagnostic imaging of breast (principal)
CPT/HCPCS: 76642; 77061; 77065; G0279

== ENCOUNTER → 2020-04-10 08:42 | Outpatient (CLI) | payer OTHER, SELFPAY ==
[2020-04-10 09:20] LABS: Cholesterol 160 mg/dL (200); High Density Lipoprotein 64 mg/dL; Thyroid Stim Hormone (TSH) 1.71 uIU/mL (0.358-3.74); Triglycerides 57 mg/dL; Very Low Density Lipoprotein 11 mg/dL (5-40)
[2020-04-10 09:38] LABS: Hemoglobin A1c 4.9 % (3.8-5.6)
== END ==
PROVIDERS: Referring Provider Obstetrics & Gynecology; Visit Provider Obstetrics & Gynecology
DX: Z13.29 Encounter for screening for other suspected endocrine disorder (principal); Z13.220 Encounter for screening for lipoid disorders; Z13.21 Encounter for screening for nutritional disorder
CPT/HCPCS: 36415; 80061; 82306; 83036; 84443

== ENCOUNTER → 2020-09-24 07:52 | Outpatient (CLI) | payer OTHER, SELFPAY ==
--- NOTE | 2020-09-24 07:54 | BI_ITS ---
MAMMOGRAPHY - BILATERAL SCREENING REASON FOR EXAM: Female, 45 years old. Routine annual screening examination. PERTINENT HISTORY: Grandmother with breast cancer. TECHNIQUE: Digital bilateral breast river (3D mammographic acquisition) in the CC and MLO projections. 2-D mediolateral oblique (MLO) and craniocaudad (CC) views of both breasts were obtained. CAD: Full Field Digital Mammography with Computer Added Detection was performed. COMPARISON: Comparison is made with prior study dated 03/27/2019 and 09/24/2019. FINDINGS: Breast Composition: The breasts are extremely dense, which lowers the sensitivity of mammography. Stable 2 well-defined nodules in the retroareolar region of the left breast. The larger nodule measures 1.9 cm. Prior sonogram demonstrated this to be a cyst. No other significant abnormalities are identified. There has been no significant change since the prior study. BI/SCRN MAMM (CAD)W/RIVER BILAT IMPRESSION: Stable bilateral screening mammogram. Yearly follow-up mammogram recommended. (A) ASSESSMENT CATEGORY: BIRADS Category 2: Benign. A letter regarding these results will be sent to the patient by the facility within 30 days. Approximately 10% of breast cancers are not detected by mammography. A normal mammogram should not delay biopsy of a clinically suspicious abnormality. [id number] Electronically Signed: Erik Reynolds MD at 9:11 EDT , Service support ,
== END ==
PROVIDERS: Referring Provider Obstetrics & Gynecology; Visit Provider Obstetrics & Gynecology
DX: Z12.31 Encounter for screening mammogram for malignant neoplasm of breast (principal)
CPT/HCPCS: 77063; 77067

== ENCOUNTER → 2020-10-20 07:52 | Outpatient (CLI) | payer OTHER, SELFPAY ==
[2020-10-20 08:44] LABS: Absolute Lymphocyte Count 1.21 X10^3/uL (0.83-4.51); Absolute Neutrophil Count 3.9 X10^3/uL (2.0-7.7); Basophil# 0.01 X10^3/uL; Basophil% 0.2 % (0-1); Eosinophil# 0.02 X10^3/uL; Eosinophils% 0.4 % (0-5); Hematocrit 36.9 % (37-47); Hemoglobin 12.1 g/dL (12.0-15.0); Lymphocyte # 1.21 X10^3/ul (0.83-4.51); Lymphocyte % 22.2 % (19-41); Mean Corp Hgb Conc 32.8 g/dL (32-36); Mean Corpuscular Hgb 30.8 pg (27.0-32.0); Mean Corpuscular Volume 93.9 fL (81-99); Monocyte# 0.34 X10^3/uL; Monocyte% 6.2 % (0-10); NRBC Flagged by Analyzer 0 % (0-5); Neutrophil # 3.86 X10^3/uL (2.7-7.7); Neutrophil % 70.6 % (47-70); Platelet Count 205 K/mm3 (150-450); RBC Distribution Width CV 11.9 % (11.6-14.6); RBC Distribution Width SD 40.7 fl (35.1-43.9); Red Blood Count 3.93 M/mm3 (4.2-5.4); White Blood Count 5.5 K/mm3 (4.4-11.0)
[2020-10-20 09:21] LABS: Follicle Stimulating Hormone 9.6 mIU/mL
== END ==
LOC: PAVLAB 08:04 → LAB 08:28
PROVIDERS: PCP Family Medicine; Referring Provider Family Medicine; Visit Provider Family Medicine
DX: N95.1 Menopausal and female climacteric states (principal); R00.2 Palpitations
CPT/HCPCS: 36415; 83001; 85025

== ENCOUNTER → 2020-11-04 13:47 | Outpatient (CLI) | payer OTHER, SELFPAY ==
--- NOTE | 2020-11-04 13:53 | ECHOD_ITS ---
Reason For Study: TACHYCARDIA & PALPITATIONS Procedure This was a 2D Doppler, Color Flow transthoracic echocardiogram. The exam was of adequate technical quality. Exam performed in department. Left Ventricle Normal LV size. Apical false tendon noted. Left ventricular systolic function is normal. The estimated ejection fraction is 65 %. No evidence for diastolic dysfunction. No regional wall motion abnormalities noted. Right Ventricle Normal RV size. Normal systolic function. Atria Normal left atrium. Normal right atrium. No doppler evidence for ASD. Mitral Valve There is no mitral annular calcification. Normal mitral valve. Mild (1+) mitral valve insufficiency. Tricuspid Valve Normal tricuspid valve. Mild tricuspid valve insufficiency. Unable to estimate RV systolic pressure due to insufficient tricuspid regurgitant envelope. Aortic Valve Trisinus/trileaflet aortic valve. Normal aortic valve. Pulmonic Valve The pulmonic valve is not well visualized. Great Vessels Normal sized aortic root. Pericardium/Pleural No pericardial effusion. MMode/2D Measurements & Calculations LVIDd: 4.6 cm IVSd: 0.65 cm Ao root diam: 3.0 cm LVIDs: 3.1 cm LVPWd: 0.60 cm RVDd: 2.3 cm FS: 33.0 % LAV(MOD-bp): 51.0 ml LA A4 area: 13.9 cm2 LA dimension(2D): 3.2 cm LAV(MOD-bp) Indexed: 32.7 ml/m2 LAV(MOD-sp2): 53.8 ml LAV(MOD-sp4): 36.6 ml RA A4 area: 11.8 cm2 Doppler Measurements & Calculations MV E max michael: 83.1 cm/sec Lat Peak E' Michael: 19.7 cm/sec Med Peak E' Michael: 14.3 cm/sec MV A max michael: 70.4 cm/sec E/E' lat: 4.2 E/E' med: 5.8 MV E/A: 1.2 Ao V2 max: 128.2 cm/sec LV V1 max: 120.0 cm/sec PA V2 max: 103.4 cm/sec Ao max P.6 mmHg LV V1 max P.8 mmHg ECHO/Echo Complete Interpretation Summary Left ventricular systolic function is normal. The estimated ejection fraction is 65 %. Mild (1+) mitral valve insufficiency. Mild tricuspid valve insufficiency. Unable to estimate RV systolic pressure due to insufficient tricuspid regurgita nt envelope. No evidence for diastolic dysfunction. Ordering Physician: Michelle Arciniega Referring Physician: Michelle Sheehan Performed By: Alix Enriquez, RDCS, RVT
== END ==
PROVIDERS: PCP Family Medicine; Visit Provider Family Medicine
DX: R00.2 Palpitations (principal); B94.8 Sequelae of other specified infectious and parasitic diseases
CPT/HCPCS: 93306

== ENCOUNTER → 2021-10-13 | Outpatient (CLI) | payer OTHER, SELFPAY ==
--- NOTE | 2021-10-13 09:21 | US_ITS ---
STUDY: ULTRASOUND BREAST - LEFT REASON FOR EXAM: Female, 46 years old. Palpable mass TECHNIQUE: Axial and longitudinal images of the LEFT breast were performed with a high resolution ultrasound transducer. # OF IMAGES: 53 COMPARISON: Diagnostic mammogram earlier today FINDINGS: LEFT Breast: Heterogeneous background echotexture. At 2 o''clock, 8 cm from nipple, in the area of the palpable abnormality, ultrasound fails to demonstrate a discrete solid or cystic mass with some dense breast parenchyma. At 6 o''clock, 2 cm nipple, ultrasound confirms a 2 cm oval parallel circumscribed anechoic mass with posterior enhancement consistent with a cyst corresponding to the mass mammography.: US/Breast Limited Unilateral IMPRESSION: 1. No abnormality in the area of the palpable abnormality with some dense breast parenchyma. 2. 2 cm cyst corresponding to mass seen on mammography. ASSESSMENT CATEGORY: BIRADS Category 2: Benign. A letter regarding these results will be sent to the patient by the facility within 30 days. Electronically Signed: Corbin Decker MD at 13:29 EDT ,
--- NOTE | 2021-10-13 09:34 | BI_ITS ---
MAMMOGRAPHY - BILATERAL DIAGNOSTIC REASON FOR EXAM: Female, 46 years old. LT LUMP PERTINENT HISTORY: Non-contributory. TECHNIQUE: Digital examination. Mediolateral oblique (MLO) and craniocaudad (CC) views of both breasts were obtained. CAD: CAD was performed on this study. COMPARISON: 09/24/2020 FINDINGS: Breast Composition: The breasts are extremely dense, which lowers the sensitivity of mammography. 2 cm oval circumscribed equal density mass in the lower inner quadrant of the left breast at anterior depth and ultrasound is recommended for further evaluation. Ultrasound of the palpable at about the BE obtained. BI/DIAG MAMM W/CAD, BILAT IMPRESSION: Further ultrasonographic evaluation recommended, as described above. ASSESSMENT CATEGORY: BIRADS Category 0: Incomplete. Need additional imaging evaluation. A letter regarding these results will be sent to the patient by the facility within 30 days. FOLLOW UP RECOMMENDATION: Ultrasound Recommended. (I) Approximately 10% of breast cancers are not detected by mammography. A normal mammogram should not delay biopsy of a clinically suspicious abnormality. Electronically Signed: Corbin Decker MD at 10:16 EDT ,
== END | disposition home or self-care (01) ==
LOC: OPBI 09:19
PROVIDERS: PCP Family Medicine; Visit Provider Obstetrics & Gynecology
DX: N63.20 Unspecified lump in the left breast, unspecified quadrant (principal)
CPT/HCPCS: 76642; 77062; 77066; G0279

== ENCOUNTER → 2021-10-14 | Outpatient (CLI) | payer OTHER, SELFPAY | END | disposition home or self-care (01) | LOC: LABSPEC 08:29 | PROVIDERS: PCP Family Medicine; Referring Provider Obstetrics & Gynecology; Visit Provider Obstetrics & Gynecology | DX: Z12.11 Encounter for screening for malignant neoplasm of colon (principal) | CPT/HCPCS: 82274 ==

== ENCOUNTER → 2022-10-15 | Outpatient (CLI) | payer OTHER, SELFPAY ==
--- NOTE | 2022-10-15 07:52 | BI_ITS ---
MAMMOGRAPHY - BILATERAL SCREENING REASON FOR EXAM: Female, 47 years old. Routine annual screening examination. PERTINENT HISTORY: Grandmother with breast cancer. TECHNIQUE: Digital bilateral breast river (3D mammographic acquisition) in the CC and MLO projections. 2-D mediolateral oblique (MLO) and craniocaudad (CC) views of both breasts were obtained. CAD: Full Field Digital Mammography with Computer Added Detection was performed. COMPARISON: Comparison is made with prior study dated October 13, 2021 and September 24, 2020. FINDINGS: Breast Composition: The breasts are extremely dense, which lowers the sensitivity of mammography. Stable 2 cm x 2.2 cm well-defined nodule in the retroareolar region of the left breast. This was demonstrated to be a cyst on prior sonogram. No other significant abnormalities are identified. There has been no significant change since the prior study. BI/SCRN MAMM (CAD)W/RIVER BILAT IMPRESSION: Stable bilateral screening mammogram. Yearly follow-up mammogram recommended. (A) ASSESSMENT CATEGORY: BIRADS Category 2: Benign. A letter regarding these results will be sent to the patient by the facility within 30 days. Approximately 10% of breast cancers are not detected by mammography. A normal mammogram should not delay biopsy of a clinically suspicious abnormality. [id number] Electronically Signed: Erik Reynolds MD at 10:07 EDT ,
== END | disposition home or self-care (01) ==
LOC: OPBI 07:51
PROVIDERS: PCP Family Medicine; Referring Provider Obstetrics & Gynecology; Visit Provider Obstetrics & Gynecology
DX: Z12.31 Encounter for screening mammogram for malignant neoplasm of breast (principal)
CPT/HCPCS: 77063; 77067

== ENCOUNTER → 2024-07-09 | Outpatient (CLI) | payer OTHER, SELFPAY ==
--- NOTE | 2024-07-09 09:24 | BI_ITS ---
EXAM: DIAG MAMM W/CAD, BILAT N/A CLINICAL HISTORY: F, Age 49 y/o , BREAST LUMP. Left breast palpable abnormality. TECHNIQUE: Bilateral Diagnostic digital breast tomosynthesis with 2D and 3D images. Computer aided detection. COMPARISON: Prior exam(s) dated 10/15/2022, 10/13/2021, and 08/2020 FINDINGS: TISSUE DENSITY: The breast tissue is extremely dense which lowers the sensitivity of mammography. Bilateral Breast Mammographic Findings: There is a 3.3 cm lobulated partially obscured isodense mass in the inferior aspect of the left breast correlating to the palpable abnormality. Further workup with ultrasound is indicated. Partially obscured stable nodular masslike densities are seen elsewhere in the breast. There is a cluster of amorphous, round, and punctate calcifications in the slightly medial, middle aspect of the left breast covering an area measuring approximately 5 mm the calcifications have slightly increased in number when compared to prior exam. Biopsy is warranted in order to completely exclude a malignancy. There are partially obscured isodense masses in the right breast which are similar when compared to prior exams. No suspicious masses, suspicious cluster of microcalcifications, architectural distortion or secondary sign of malignancy is identified in the right breast. BI/DIAG MAMM W/CAD, BILAT IMPRESSION: OVERALL FINAL ASSESSMENT: BIRADS 4B SUSPICIOUS ABNORMALITY-Moderate suspicion f or malignancy (10-50% likelihood of cancer). RECOMMENDATION: The suspicious calcifications in the left breast should be biopsied in order to completely exclude a malignancy. The left breast palpable will also be further worked up with ultrasound. Please see that repor t. A letter with findings and recommendations will be mailed to the patient. Reading Location: [id number]
--- NOTE | 2024-07-09 10:53 | US_ITS ---
PROCEDURE: BREAST LIMITED UNILATERAL 07/09/2024 REASON FOR EXAM: L BREAST CYST Left breast palpable abnormality for 2 weeks. Inconclusive mammogram shows a lobulated mass or 2 overlapping masses in this location. Evaluate. TECHNIQUE: Targeted left breast ultrasound. COMPARISON: Mammogram studies dated 07/09/2024, 10/15/2022, 10/13/2021, and 01/25/2021 FINDINGS: Left breast ultrasound was targeted to the palpable mass and mass seen in the left breast inferiorly.. There are 2 benign-appearing cystic masses in the breast. These do correlate to the lobulated mass seen on the mammogram and the palpable abnormality. These cystic masses are located at the, 5 o'clock, 3 cm from the nipple position measuring 2.6 x 2.5 x 1.2 cm and 4 o'clock, 3 cm from the nipple position measuring 11 x 8 x 6 mm. The cysts abut 1 another. No suspicious solid masses are seen. US/Breast Limited Unilateral IMPRESSION: Impression: There are 2 benign-appearing cystic masses in the left breast. The se do correlate to the palpable abnormality and lobulated mass seen on the mammogram. Aspiration is recommended. The patient also has calcifications seen in the left breast on the mammogram wh ich warrant biopsy. Please see the mammogram report. Birads: BI-RADS 4: SUSPICIOUS ABNORMALITY. Reading Location: [id number]
== END | disposition home or self-care (01) ==
PROVIDERS: PCP Family Medicine; Referring Provider Obstetrics & Gynecology; Visit Provider Obstetrics & Gynecology
DX: N60.02 Solitary cyst of left breast (principal)
CPT/HCPCS: 76642; 77062; 77066; G0279

== ENCOUNTER → 2024-07-11 | Outpatient (CLI) | payer OTHER, SELFPAY ==
--- NOTE | 2024-07-11 08:00 | FLU_PTH ---
PATIENT: KITTY AGRAWAL LOC: [facility] U#:[id number] AGE/SX: 49/F ROOM: RE07/11/[address]: Dr. James Miller MD : 1975 BED: DIS: 07/11/2024 SPEC #: [id number] RECD: 07/11/24 09:00 STATUS: YOKO SANTOSH #: [id number] BHARAT: 07/11/24 08:[address]: James Miller DEPT: CYTOLOGY RECD BY: Saeed Santo ENTERED: 07/11/24 13:19 SP TYPE: Fluid OTHR DR: Dr. Michelle Arciniega MD Tissues: A - Left breast, NOS Procedures: Special Stain Group II Surgery Specimen Level IV Cytospin Fluid HEADER OPERATION: Not noted PRE-OP DIAGNOSIS: Left breast cyst TISSUE SUBMITTED: A- Left breast cyst DIAGNOSIS CYTOLOGY A. Left breast cyst, aspiration, cytospin and cellblock: * Nondiagnostic. * Acellular specimen. CYTOLOGY STUDY Slides are reviewed. CYTOLOGY GROSS A. Received is 8 ml of black fluid labeled with the patient's name and and designated per the requisition as Left breast cyst. Submitted for cytology (cytospin) and cell block preparation. 07/11/2024 CPT: 32555 , 22786
[2024-07-11 09:12] LABS: Cytology, Body Fluid / CSF SEE PATHOLOGY REPORT
== END | disposition home or self-care (01) ==
LOC: LABSPEC 08:52
PROVIDERS: PCP Family Medicine; Referring Provider Surgery; Visit Provider Surgery
DX: N60.02 Solitary cyst of left breast (principal)
CPT/HCPCS: 88108; 88305; 88313

== ENCOUNTER → 2024-07-16 | Outpatient (CLI) | payer OTHER, SELFPAY ==
--- NOTE | 2024-07-16 11:40 | BRBX_PTH ---
PATIENT: KITTY AGRAWAL LOC: [facility] U#:[id number] AGE/SX: 49/F ROOM: RE07/16/[address]: Dr. James Miller MD : 1975 BED: DIS: 07/16/2024 SPEC #: [id number] RECD: 07/16/24 12:20 STATUS: YOKO REQ #: [id number] BHARAT: 07/16/24 11:[address]: James Miller DEPT: SURGICAL PATHOLOGY RECD BY: Saeed Santo ENTERED: 07/16/24 13:53 SP TYPE: BREAST BX OTHR DR: Dr. Michelle Arciniega MD Tissues: A - Left breast, NOS Procedures: Immunohistochemical Stains Surgery Specimen Level IV IHC Stain ADDITIONAL HEADER OPERATION: Left breast stereo core biopsy PRE-OP DIAGNOSIS: Microcacifications left breast medial middle aspect TISSUE SUBMITTED: A- Micro calcs left breast Ischemic Time: 1 minute Fixation Time: 7 hours MICROSCOPIC DIAGNOSIS A. Left breast, medial middle aspect, microcalcifications, biopsy: * Benign breast tissue with usual ductal hyperplasia and apocrine metaplasia. * Two microcalcifications are noted - see note. * IHC for CK5/6 and p40 (blocks A1, A4) support the histologic impression. * Note: No residual microcalcifications are identified in the blocks per x-ray examination. MICROSCOPIC DESCRIPTION Slides are reviewed. All matched controls reacted appropriately. These tests were developed and their performance characteristics determined by [facility]. They may not have been cleared or approved by the U.S. Food and Drug Administration. The FDA has determined that such clearance or approval is not necessary.? The above immunohistochemical/dualISH?markers are ordered and reviewed by the Pathologist. GROSS DESCRIPTION A. Received in formalin in a container labeled with the patient's name, date of , and with the accompanying paperwork indicating, micro calcs left, left breast stereo core biopsy are multiple sauceda-yellow fragments of fibrofatty tissue measuring 2.2 x 1.7 x 1.3 cm in aggregate. Submitted in toto in A1-5. [facility] 07-16-2024 CPT:86237,[id number],[id number]
--- NOTE | 2024-07-16 11:59 | PCM.OPRPT ---
Problems Associated Problem List Diagnoses (1) Calcification of left breast: Procedures Integumentary [id number]: [id number] Bx breast 1st lesion [facility] Operative Report (Standard) Operative Information Date of Procedure: 07/16/24 Pre-Operative Diagnosis: Abnormal left breast mammogram/microcalcifications Post-Operative Diagnosis: Same Surgery/Procedure Performed: Left breast stereotactic biopsy lead bi developer: No Type of Anesthesia: Local Procedure Start Time: 11:30 Procedure Stop Time: 11:45 Select all DRAINS/GRAFTS/IMPLANTS that apply: None Estimated Blood Loss: 10 mL Specimen collected: Yes Description of specimen(s) removed: Left breast tissue with microcalcifications Description of surgery: The patient is a 49-year-old female who is recently seen through the office with an abnormal left breast mammogram. This showed a new area of microcalcifications in the left breast. Stereotactic biopsy was recommended. I offered her biopsy. We discussed the details of the planned procedure including risks benefits and alternatives. She wished to proceed. She was brought to the mammography suite today following informed consent. She is placed prone on the mammotome table. The left breast was suspended through the aperture and the table. The left breast was then placed into compression and views were taken of the breast until the area of calcifications were identified. Once these were successfully identified, stereotactic views were then obtained in which these calcifications were targeted upon. Once sufficient targeting was performed the needle was inserted to the desired depth. Local anesthetic was injected prior to insertion of the mammotome needle device. Once in place, the region was biopsied via numerous circumferential suction biopsies. There was good tissue sampling. Patient tolerated this well. The specimen tissue was then radiographed and clearly showed calcifications within the tissue. After this was performed, a marking clip was then deployed. Post clip placement image showed the clip to be in the desired location. She was then taken out of compression. Post procedure mammogram will be performed. A dressing was then applied. I will contact her with results once they become available. Surgical Findings: Microcalcifications successfully biopsied Complications Complications: No Admit VTE Documentation VTE Present on Admission: No VTE Mechan Device Prophylaxis: SCD's VTE Pharm Prophylaxis ordered?: No Reason prophylaxis not ordered: Treatment Not Indicated
== END | disposition home or self-care (01) ==
PROVIDERS: PCP Family Medicine; Referring Provider Surgery; Visit Provider Surgery
DX: R92.0 Mammographic microcalcification found on diagnostic imaging of breast (principal)
CPT/HCPCS: 19081; 88305; 88341; 88342; A4648